=== PATIENT | female | born 1995 | race Caucasian/White ===

== ENCOUNTER 2021-08-31 19:38 | Emergency (ER) | payer OTHER, SELFPAY ==
--- NOTE | ~2021-08-31 | US_ITS ---
EXAMINATION: US OB <=14 wk fetus w TV DATE: 08/31/2021 23:07 INDICATION: Rule out ectopic . Heavy vaginal bleeding. TECHNIQUE: Real-time transabdominal and transvaginal obstetric ultrasound. FINDINGS: No prior studies for comparison. The uterus measures 8.7 x 4.9 x 6.8 cm. There are uterine fibroid measuring 3.1 cm. Endometrium measures 2 cm thickness. No intrauterine preg conrad is identified. Ovaries are within normal limits. No free fluid in the pelvis. IMPRESSION: 1. Thickened heterogeneous endometrium measuring 2 cm. No intrauterine identified. Clarita gomez diagnosis includes very early intrauterine , ectopic and failed . Re commend follow-up with serial quantitative beta-hCG levels and ultrasound as clinically indicated. Reviewed, dictated and finalized at location A.
[2021-08-31 19:56] VITALS: BP 141/84; PULSE 103; RESP 18; TEMP 36.9; O2SAT 99
[2021-08-31 20:34] LABS: Basophils Absolute Auto 0.1 K/mm3 (0.0-0.1); Basophils Percent Auto 0.8 % (0.2-1.2); Eosinophils Absolute Auto 0.1 K/mm3 (0-0.3); Eosinophils Percent Auto 1.6 % (0-4.4); Hematocrit 34.5 % (37.0-47.0); Hemoglobin 12.3 g/dL (12.0-15.0); Immature Granulocyte Absolute 0.05 K/mm3 (0.00-0.031); Immature Granulocyte Percent A 0.6 % (0-0.5); Lymphocytes Absolute Auto 1.81 K/mm3 (0.9-3.2); Lymphocytes Percent Auto 21.9 % (18.3-44.2); Mean Corpuscular HGB Conc 35.7 g/dl (32-36); Mean Corpuscular Hemoglobin 32.4 pg (26-34); Mean Corpuscular Volume 90.8 fl (80-100); Monocytes Absolute Auto 0.5 K/mm3 (0.1-0.6); Monocytes Percent Auto 5.7 % (2.6-8.5); Neutrophils Absolute Auto 5.8 K/mm3 (1.3-6.7); Neutrophils Percent Auto 69.4 % (45.5-73.1); Platelet Count Result 263 k/mm3 (150-375); Red Cell Distribution Width 12.7 % (11.5-14.5); White Blood Count 8.3 K/mm3 (4.5-10.0)
--- NOTE | 2021-08-31 22:26 | ED.GENADULT ---
HPI - General Adult General Chief complaint: Unspecified Stated complaint: Miscarriage Time Seen by Provider: 08/31/21 21:57 Source: patient and RN notes reviewed Mode of arrival: ambulatory Limitations: no limitations History of Present Illness HPI narrative: This is a 25 year old female approximately 6 weeks GA who presents for evaluation of vaginal bleeding. Patient states she was seen by her family practice doctor for vaginal bleeding. She reports she had an ultrasound showing 6 week IUP yesterday. She states she was sent to [facility] yesterday for rhogam injection but it was late so she left. She developed worsening vaginal bleeding last night, and reports soaking through 1 pad per hour. She reports she was passing large clots. She had abdominal cramping but that has resolved. She reports mild weakness. She reports she was told when she was younger she was O positive but with her first she was give RHOGAM for being O negative. Related Data Allergies Allergy/AdvReac Type Severity Reaction Status Date / Time No Known Allergies Allergy Verified 08/31/21 20:03 Review of Systems Review of Systems: All systems reviewed & are unremarkable except as noted in HPI and below PMFSH Past Medical History Medical History (Updated 09/01/21 @ 00:11 by Chandrika Block MD) Patient denies medical problems Surgical History Surgical History (Updated 08/31/21 @ 23:55 by Chandrika Block MD) No pertinent past surgical history Social History Social History (Updated 08/31/21 @ 23:56 by Chandrika Block MD) Smoking status: Never smoker Substance use: current Substance use type: amphetamines and IV drugs Exam Narrative: GENERAL: Well-appearing, well-nourished, and in no acute distress. HEAD: Normocephalic, atraumatic EYES: PERRLA and EOMI, conjunctiva clear without discharge THROAT:Mucous membranes moist, Oropharynx normal without erythema, exudate, peritonsillar swelling or fluctuance NECK: Supple, without lymphadenopathy or mass RESPIRATORY: No respiratory distress, Airway patent, Respirations non-labored, Clear to auscultation without rales, rhonchi or wheeze HEART: Regular rate and rhythm. No murmur heard. Normal peripheral pulses. ABDOMEN: Soft, nontender, nondistended, normal active bowel sounds. No masses. No rebound or guarding, No organomegaly. EXTREMITIES: No edema, normal strength with full range of motion. SKIN: Warm, dry, normal color without rash NEURO: Alert and oriented x3. CN 2-12 grossly intact. No focal deficits. PSYCH: Normal mood and affect. : Speculum Exam - Vagina: vaginal bleeding (minimal dark blood, no clots) Speculum Exam - Cervix: normal palpation and Cervical os closed Course Reevaluation(s) Reevaluation #1: US no longer shows IUP so she is having miscarriage. She was found to be O positive so no rhogam. She has minimal bleeding. Date: 08/31/21 Time: 23:56 Consultations Consultation #1: I Discussed case with Dr. Fuller about patient O positive with positive antibody anti- K. She agrees no Rhogam needed to be given at this time. Patient needs to have repeat HCG and follow up. Date: 09/01/21 Time: 00:08 Vital Signs Vital signs: Vital Signs Temperature 98.5 F 08/31/21 19:56 Pulse Rate 103 H 08/31/21 19:56 Respiratory Rate 18 08/31/21 19:56 Blood Pressure 141/84 H 08/31/21 19:56 Pulse Oximetry 99 08/31/21 19:56 Temperature 98.5 F 08/31/21 19:56 Pulse Rate 66 08/31/21 23:26 Respiratory Rate 18 08/31/21 23:26 Blood Pressure 135/79 08/31/21 23:26 Pulse Oximetry 100 08/31/21 23:26 Medical Decision Making Vital Signs Vital Signs: Vital Signs Temperature 98.5 F 08/31/21 19:56 Pulse Rate 103 H 08/31/21 19:56 Respiratory Rate 18 08/31/21 19:56 Blood Pressure 141/84 H 08/31/21 19:56 Pulse Oximetry 99 08/31/21 19:56 Temperature 98.5 F 08/31/21 19:56 Pulse Rate 66 08/31/21 23:26 Resp
[2021-08-31 23:26] VITALS: BP 135/79; PULSE 66; RESP 18; O2SAT 100
== END 2021-09-01 00:51 | disposition home or self-care (01) ==
PROVIDERS: Emergency Medicine; Emergency Provider General Practice; PCP Family Medicine
DX: O03.9 Complete or unspecified spontaneous abortion without complication (principal)
CPT/HCPCS: 36415; 76801; 76817; 84702; 85025; 85461; 86880; 86902; 99284

== ENCOUNTER 2022-02-03 11:10 | Emergency (ER) | payer OTHER, SELFPAY ==
[2022-02-03 11:33] VITALS: BP 133/91; PULSE 84; RESP 16; TEMP 36.3; O2SAT 99
--- NOTE | 2022-02-03 11:39 | ED.GENADULT ---
HPI - General Adult General Chief complaint: Dental/Oral Stated complaint: broken tooth with neck pain Source: patient Mode of arrival: ambulatory Limitations: no limitations History of Present Illness HPI narrative: this is a 26-year-old female who presents with some dental after she has dental caries and broken left lower molar a radiates into her neck with no fever chills no shortness of breath no nausea vomiting. Onset (ago): day(s) Location: mouth Radiation: neck Severity: moderate Severity scale (1-10): 6 Pain Consistency: constant Relieving factors: none Exacerbating factors: none Associated symptoms: denies other symptoms Related Data Home Medications Medication Instructions Recorded Confirmed Vitamin 1 tablet DAILY 02/03/22 02/03/22 Allergies Allergy/AdvReac Type Severity Reaction Status Date / Time No Known Allergies Allergy Verified 02/03/22 11:28 Review of Systems Review of Systems: All systems reviewed & are unremarkable except as noted in HPI and below PMFSH Past Medical History Medical History Patient denies medical problems Surgical History Surgical History No pertinent past surgical history Social History Social History Smoking status: Never smoker Substance use: current Substance use type: amphetamines and IV drugs Exam Const: General: no acute distress and alert Orientation/consciousness: patient oriented x3 HENMT: Head: normal to inspection Other: Patient has some dental caries and cracked left lower premolar surrounding gum inflammation and tenderness in the neck and radiating into her left ear. Eyes: Pupils: Equal, round and reactive pupils present Neck: Neck: normal visual inspection, no lymphadenopathy and no meningeal signs Chest: Chest palpation & inspection: normal inspection of the chest Resp: Effort & Inspection: normal respiratory effort Auscultation: clear to auscultation bilaterally Cardio: Rate: regular rate Rhythm: regular rhythm GI: GI Palp: Yes Soft to palpation Percussion: Yes normal to percussion : General: Yes no CVA tenderness Back/Spine/Pelvis: Back: no CVA tenderness Neuro: General: patient oriented x3 and moves all extremities Extrem: General: normal to inspection Course Course Emergency Course: Patient received IM Toradol, after reassessment of pain her pain level has improved. Critical Care Time Critical Care Time Critical Care Time: No Discharge Plan Discharge Clinical Impression: Toothache Fracture of tooth Qualifiers: Encounter type: initial encounter Fracture type: closed Qualified Code(s): S02.5XXA - Fracture of tooth (traumatic), initial encounter for closed fracture Patient Disposition: Home, Self-Care Condition: Stable Instructions: Antibiotic Form, Dental Abscess (ED), Acute Dental Trauma (ED), Toothache (ED) Additional Instructions: Take medicine as prescribed and establish care with a dentist as soon as possible for further evaluation and treatment. Prescriptions: New amoxicillin 500 mg capsule 500 mg PO TID Qty: 30 RF: 0 tramadol [Ultram] 50 mg tablet 50 mg PO Q6H PRN (Reason: pain) Qty: 20 RF: 0 No Action Vitamin 1 tablet DAILY RF: 0 Follow-up/Referrals: Jose Ying M.D. [Primary Care Provider] - Stand Alone Forms: Work/School Release IP Time of Disposition: 11:45
[2022-02-03] MEDS: KETOROLAC (*BKC) 60 MG/2 ML VIAL IM (11:58)
== END 2022-02-03 12:08 | disposition home or self-care (01) ==
PROVIDERS: Emergency Provider Emergency Medicine; PCP Family Medicine
DX: K08.89 Other specified disorders of teeth and supporting structures (principal); S02.5XXA Fracture of tooth (traumatic), initial encounter for closed fracture
CPT/HCPCS: 96372; 99283; J1885

== ENCOUNTER 2023-01-12 03:00 | Emergency (ER) | payer OTHER, SELFPAY ==
[2023-01-12 03:03] VITALS: BP 139/74; PULSE 98; RESP 14; TEMP 37.1; O2SAT 100
--- NOTE | 2023-01-12 03:09 | ED.GENADULT ---
HPI - General Adult General Chief complaint: Unspecified Stated complaint: Nausea/vomiting Source: patient Mode of arrival: ambulatory History of Present Illness HPI narrative: 27-year-old female with a history of polysubstance abuse, Rh negative presents to the ER with -- generalized body ache which started after she woke up from her sleep -- nausea multiple episodes of vomiting. She complains of generalized abdominal pain Onset (ago): hour(s) ( started 2 hours ago.) Severity: moderate Pain Consistency: constant Relieving factors: none Exacerbating factors: none Associated symptoms: nausea/vomiting Related Data Allergies Allergy/AdvReac Type Severity Reaction Status Date / Time No Known Allergies Allergy Verified 01/12/23 03:02 Review of Systems Review of Systems: All systems reviewed & are unremarkable except as noted in HPI and below Constitutional: Constitutional: Reports as per HPI and Reports body ache(s) Eyes: Eyes: Reports as per HPI and Reports no additional eye complaints ENT: Reports system reviewed and no additional complaints, except as documented and Reports as per HPI Cardiovascular: Cardiovascular: Reports as per HPI and Reports no additional cardiovascular complaints Respiratory: Respiratory: Reports as per HPI and Reports no additional respiratory complaints Gastrointestinal: Gastrointestinal: Reports as per HPI, Reports no additional gastrointestinal complaints, Reports abdominal pain, Reports nausea and Reports vomiting Genitourinary: Genitourinary: Reports no additional female genitourinary complaints and Reports as per HPI Musculoskeletal: Musculoskeletal: Reports no additional musculoskeletal complaints and Reports as per HPI Integumentary/Breasts: Skin/Breast: Reports system reviewed and no additional complaints, except as docu and Reports as per HPI Neurologic: Reports system reviewed and no additional complaints, except as documented and Reports as per HPI Psychiatric: Psychiatric: Reports no additional psychiatric complaints and Reports as per HPI Endocrine: Endocrine: Reports no additional endocrine complaints and Reports as per HPI Hematologic/Lymphatic: Hematologic/Lymphatic: Reports no additional hematologic/lymphatic complaints and Reports as per HPI Allergic/Immunologic: Allergic/Immunologic: Reports no additional allergic/immunologic complaints and Reports as per HPI PMFSH Past Medical History Medical History Patient denies medical problems Surgical History Surgical History No pertinent past surgical history Social History Social History Smoking status: Never smoker Substance use: current Substance use type: amphetamines and IV drugs Exam Const: General: cooperative and no acute distress Nutritional Appearance: average body habitus Orientation/consciousness: oriented to person, oriented to place and oriented to time Limitations: no limitations HENMT: Head: normal to inspection, normocephalic and atraumatic Ears: hearing grossly normal bilaterally Face/Nose/Sinus: Normal external nose present Face and sinus: normal facial exam Mouth: Yes Normal oral and palatal mucosa present Throat: posterior oropharynx normal Eyes: General: appearance normal, both eyes and all related structures Eyelids: eyelids normal Conjunctivae: conjunctivae normal Sclera: sclerae normal Pupils: Equal, round and reactive pupils present EOM: EOMs intact bilaterally Direct Ophthalmoscopy: normal light reflex Neck: Neck: normal visual inspection Chest: Chest palpation & inspection: normal inspection of the chest Resp: Effort & Inspection: normal respiratory effort Auscultation: clear to auscultation bilaterally Cardio: Palpation: normal PMI Rate: regular rate Rhythm: regular rhythm Heart sounds: S1 normal hea
[2023-01-12] MEDS: ONDANSETRON HCL ODT 4 MG TABLET PO ×2 (03:27→04:53)
[2023-01-12 03:53] LABS: Basophils Absolute Auto 0.02 K/mm3 (0.00-0.10); Basophils Percent Auto 0.3 % (0.0-1.0); Eosinophils Absolute Auto 0.05 K/mm3 (0.02-0.50); Eosinophils Percent Auto 0.7 % (1.0-6.0); Hematocrit 39.6 % (35.0-49.0); Hemoglobin 13.4 g/dL (12.0-15.0); Immature Granulocyte Absolute 0.02 K/mm3 (0.00-0.00); Immature Granulocyte Percent A 0.3 % (0.0-0.0); Lymphocytes Absolute Auto 0.32 K/mm3 (1.10-4.50); Lymphocytes Percent Auto 4.2 % (18.0-42.0); Mean Corpuscular HGB Conc 33.8 g/dL (32.0-36.0); Mean Corpuscular Hemoglobin 31.4 pg (27.0-31.0); Mean Corpuscular Volume 92.7 fL (78.0-102.0); Mean Platelet Volume 9.2 fl (9.2-11.8); Monocytes Absolute Auto 0.28 K/mm3 (0.10-0.90); Monocytes Percent Auto 3.7 % (2.0-11.0); Neutrophils Absolute Auto 6.8 K/mm3 (1.7-7.2); Neutrophils Percent Auto 90.8 % (50.0-70.0); Platelet Count Result 226 K/mm3 (150-420); Red Blood Count 4.27 M/mm3 (4.20-5.40); Red Cell Distribution Width 12.7 % (11.6-14.4); White Blood Count 7.5 K/mm3 (4.8-10.8)
[2023-01-12 03:56] LABS: Appearance Urine Clear (Clear); Bilirubin Urine Negative (Negative); Blood Urine Negative (Negative); Color Urine Yellow (Yellow); Glucose Urine UA Negative (Negative); Ketones Urine Trace (Negative); Leukocyte Esterase Ur Negative LEU/UL (Negative); Nitrate Urine Positive (Negative); Protein Urine Negative (Negative); Specific Grav Ur >= 1.030 (1.010-1.020); pH Urine 5.5 (5.0-8.0)
[2023-01-12 04:01] LABS: Add Urine Microscopic? YES; RBC Urine 0-2 /hpf (0-2); Squamous Epithelial Cell Urine Moderate /hpf (Few); WBC Urine 0-3 /hpf (0-3)
[2023-01-12 04:02] LABS: Bacteria Urine 1+ /hpf; Mucus Urine Moderate /lpf; Pregnancy On Board Control Positive; Urine Pregnancy Test Negative
[2023-01-12 04:06] LABS: INR 1.1; Prothrombin Time 11.5 Seconds (9.50-12.10)
[2023-01-12 04:09] LABS: Alanine Aminotransferase 12 U/L (14-59); Albumin Level 3.7 g/dL (3.4-5.0); Alkaline Phosphatase 75 U/L (46-116); Anion Gap 11 mmol/L (8-16); Aspartate Amino Transferase 17 U/L (15-37); Bilirubin,Total 0.6 mg/dL (0.00-1.00); Blood Urea Nitrogen 19 mg/dL (7-18); Carbon Dioxide 23 mmol/L (21-32); Chloride 104 mmol/L (98-108); Estimated CRCL calculation 77 ml/min; Estimated Glomerular Filt Rate > 60; Glucose 120 mg/dL (70-99); Lipase 29 U/L (16-77); Osmolality Calculated 289 mOsm/kg (285-295); Potassium 3.8 mmol/L (3.5-5.1); Sodium 138 mmol/L (136-145); Total Protein 7.7 g/dL (6.4-8.2)
[2023-01-12 04:14] LABS: Lactic Acid Reflex 1.2 mmol/L (0.4-2.0)
[2023-01-12 04:16] LABS: Calcium 8.9 mg/dL (8.5-10.1)
[2023-01-12 04:29] LABS: Influenza A QL RT-PCR Negative (Negative); Influenza B QL RT-PCR Negative (Negative); SARS-CoV-2 RNA PCR Negative (Negative)
[2023-01-12 04:42] LABS: RSV RNA, RT-PCR Negative (Negative)
--- NOTE | 2023-01-12 04:53 | ED.GENADULT ---
HPI - General Adult General Chief complaint: Unspecified Stated complaint: Nausea/vomiting Source: patient Mode of arrival: ambulatory History of Present Illness Relieving factors: none Exacerbating factors: none Associated symptoms: nausea/vomiting Related Data Allergies Allergy/AdvReac Type Severity Reaction Status Date / Time No Known Allergies Allergy Verified 01/12/23 03:02 [facility] Past Medical History Medical History Patient denies medical problems Surgical History Surgical History No pertinent past surgical history Social History Social History Smoking status: Never smoker Substance use: current Substance use type: amphetamines and IV drugs Course Vital Signs Vital signs: Vital Signs Temperature 37.1 C 01/12/23 03:03 Pulse Rate 98 01/12/23 03:03 Respiratory Rate 14 01/12/23 03:03 Blood Pressure 139/74 01/12/23 03:03 Pulse Oximetry 100 01/12/23 03:03 Temperature 37.1 C 01/12/23 03:03 Pulse Rate 98 01/12/23 03:03 Respiratory Rate 14 01/12/23 03:03 Blood Pressure 139/74 01/12/23 03:03 Pulse Oximetry 100 01/12/23 03:03 Medical Decision Making Vital Signs Vital Signs: Vital Signs Temperature 37.1 C 01/12/23 03:03 Pulse Rate 98 01/12/23 03:03 Respiratory Rate 14 01/12/23 03:03 Blood Pressure 139/74 01/12/23 03:03 Pulse Oximetry 100 01/12/23 03:03 Temperature 37.1 C 01/12/23 03:03 Pulse Rate 98 01/12/23 03:03 Respiratory Rate 14 01/12/23 03:03 Blood Pressure 139/74 01/12/23 03:03 Pulse Oximetry 100 01/12/23 03:03 Lab Data 01/12/23 03:50 01/12/23 03:50 Labs: Lab Results 01/12/23 01/12/23 01/12/23 Range/Units 03:50 03:50 03:50 WBC 7.5 (4.8-10.8) K/mm3 RBC 4.27 (4.20-5.40) M/mm3 Hgb 13.4 (12.0-15.0) g/dL Hct 39.6 (35.0-49.0) % MCV 92.7 (78.0-102.0) fL MCH 31.4 H (27.0-31.0) pg MCHC 33.8 (32.0-36.0) g/dL RDW 12.7 (11.6-14.4) % Plt Count 226 (150-420) K/mm3 MPV 9.2 (9.2-11.8) fl Immature Gran % (Auto) 0.3 H (0.0-0.0) % Neut % (Auto) 90.8 H (50.0-70.0) % Lymph % (Auto) 4.2 L (18.0-42.0) % [place] % (Auto) 3.7 (2.0-11.0) % Eos % (Auto) 0.7 L (1.0-6.0) % Baso % (Auto) 0.3 (0.0-1.0) % Lymph # (Auto) 0.32 L (1.10-4.50) K/mm3 [place] # (Auto) 0.28 (0.10-0.90) K/mm3 Eos # (Auto) 0.05 (0.02-0.50) K/mm3 Baso # (Auto) 0.02 (0.00-0.10) K/mm3 Abs Immat Gran (auto) 0.02 H (0.00-0.00) K/mm3 Absolute Neuts (auto) 6.8 (1.7-7.2) K/mm3 Absolute Nucleated RBC 0.00 (0.00-0.00) K/mm3 Nucleated RBC % 0.0 (0-0.0) % PT (9.50-12.10) Seconds INR Sodium (136-145) mmol/L Potassium (3.5-5.1) mmol/L Chloride (98-108) mmol/L Carbon Dioxide (21-32) mmol/L Anion Gap (8-16) mmol/L BUN (7-18) mg/dL Creatinine (0.55-1.02) mg/dL Estim Creat Clear Calc ml/min Estimated GFR (59 - ) Glucose (70-99) mg/dL Calculated Osmolality (285-295) mOsm/kg Lactic Acid (0.4-2.0) mmol/L Calcium (8.5-10.1) mg/dL Total Bilirubin (0.00-1.00) mg/dL AST (15-37) U/L ALT (14-59) U/L Alkaline Phosphatase (46-116) U/L Total Protein (6.4-8.2) g/dL Albumin (3.4-5.0) g/dL Lipase (16-77) U/L Urine Color Yellow (Yellow) Urine Appearance Clear (Clear) Urine pH 5.5 (5.0-8.0) Ur Specific [place] >= 1.030 H (1.010-1.020) Urine Protein Negative (Negative) Urine Glucose (UA) Negative (Negative) Urine Ketones Trace H (Negative) Ur Blood (Man) Negative (Negative) Urine Nitrate Positive H (Negative) Urine Bilirubin Negative (Negative) Urine Urobilinogen 1.0 (0.2-1.0) mg/dL Leukocyte Esterase Rfl N
[2023-01-12 04:56] VITALS: BP 113/71; PULSE 95; RESP 14; TEMP 36.6; O2SAT 100
--- NOTE | 2023-01-14 14:09 | PC.NURSE ---
attempted to call pt to infomr of positive urine culture and need to start abx. phone message states the pt is unavailable at this time.
--- NOTE | 2023-01-14 17:25 | PC.NURSE ---
2nd attempt to call pt to inform of positive urine culture and need to start abx. phone message states the pt is unavailable at this time.
--- NOTE | 2023-01-14 17:30 | PC.NURSE ---
contact attempt with pt's emergency contact - Johnnie- unsuccessful. voice message left on machine to return call to this hand sign writer.
--- NOTE | 2023-01-14 18:43 | PC.NURSE ---
attempted to call pt, phone states pt is unavailable at this time. pt's emergency contact, Johnnie, called, his phone states he is also unavailable.
--- NOTE | 2023-01-15 12:04 | PC.NURSE ---
attempted to contact pt via phone to discuss urine culture report and need for abx. phone message states pt is not taking calls at this time. called pt emergency contact - feliberto - as listed on her chart. feliberto contacted and instructed to have juventino call this er for treatment zeynep
--- NOTE | 2023-01-15 13:36 | PC.NURSE ---
pt returned call. informed of urinary infection and need for abx. pt requested medication be called in to [facility] in [place]. Augmentin 875/125mg p.o. q12 hours for 7 days called in to [facility] in [place]. pt instructed to f/u with pmd for further treatment.
== END 2023-01-12 05:01 | disposition home or self-care (01) ==
PROVIDERS: Emergency Provider Internal Medicine Critical Care Medicine
DX: K29.70 Gastritis, unspecified, without bleeding (principal); R52 Pain, unspecified; Z20.822 Contact with and (suspected) exposure to COVID-19
CPT/HCPCS: 36415; 80053; 81001; 81025; 83605; 83690; 85025; 85610; 87077; 87086; 87088; 87186; 87637; 99283; A9270

== ENCOUNTER 2024-05-20 15:22 | Inpatient (IN) | payer OTHER, SELFPAY ==
--- NOTE | ~2024-05-20 | US_ITS ---
RIGHT UPPER EXTREMITY VENOUS ULTRASOUND Ordering provider: Khushbu Jimenez PA-C History: . right forearm swelling . Comparison: None. FINDINGS: --JUGULAR: Patent and free of thrombus. Normal compressibility, phasic flow and augmentation. --SUBCLAVIAN: Patent and free of thrombus. Normal compressibility, phasic flow and augmentation. --AXILLARY: Patent and free of thrombus. Normal compressibility, phasic flow and augmentation. --BRACHIAL: Patent and free of thrombus. Normal compressibility, phasic flow and augmentation. --CEPHALIC: Patent and free of thrombus. Normal compressibility, phasic flow and augmentation. --BASILIC: Patent and free of thrombus. Normal compressibility, phasic flow and augmentation. --RADIAL: Patent and free of thrombus. Normal compressibility, phasic flow and augmentation. --ULNAR: Patent and free of thrombus. Normal compressibility, phasic flow and augmentation. IMPRESSION: Negative right upper extremity venous US. No deep vein thrombosis. Reviewed, dictated and finalized at location A.
--- NOTE | ~2024-05-20 | CT_ITS ---
EXAMINATION: CTA chest PE abdomen pel DATE: 05/20/2024 19:36 INDICATION: L chest/abd pain, pleuritic pain, fevers, N/V TECHNIQUE: Computed tomography angiography (CTA) of the chest was performed with 100 mL Omnipaque-350 intravenous contrast timed to evaluate the pulmonary arteries, followed by portal venous phase imagi ng of the abdomen and pelvis. Coronal maximum intensity projection 3D-reconstructions were created by the technologist. The dose-length product (DLP) was 583.33 mGy-cm. Automated exposure control and it erative reconstruction technique were employed. COMPARISON: None. FINDINGS: CHEST: Lung parenchyma and airways: Scattered centrilobular nodular and tree-in-bud opacities, most notable in the right lung. Calcified right lower lobe granuloma. Dependent atelectasis. Pleura: Unremarkable. Thoracic inlet, axillae and chest wall: No thyroid or soft tissue mass. Thoracic aorta: No significant dilation. No dissection. Mediastinum: Normal. Heart and pericardium: Normal. Coronary artery calcifications: Absent. Thoracic bones: No acute osseous finding. Pulmonary arteries: Study quality: Adequate. No pulmonary emboli detected. ABDOMEN/PELVIS: Liver: Enlarged. Biliary/Gallbladder: Partially contracted gallbladder with pericholecystic fluid. No bile duct dilati on. Pancreas: No mass or duct dilation. Spleen: Normal. Adrenals:No mass. Kidneys: Patchy left renal parenchymal enhancement without focal fluid collection. Mild bilateral ure terectasis and urothelial enhancement. GI tract: No small or large bowel dilation. Normal appendix. Diverticulosis without diverticulitis. Mesentery/Peritoneum: No ascites, mass, or free air. Retroperitoneum: No mass. Pelvis: Fibroid uterus. Normal ovaries. Mild urinary bladder wall thickening and stranding. Soft Tissues: Soft tissues and body wall unremarkable. Abdominopelvic bones: No acute osseous finding. IMPRESSION: No CT evidence of acute pulmonary embolus. Pulmonary opacities may reflect hypersensitivity pneumonitis, respiratory bronchiolitis, or infectiou s airways disease. Hepatomegaly. Pericholecystic fluid, a nonspecific finding. Correlate with biliary labs. Left pyelonephritis, likely secondary to ascending infection from cystitis. Reviewed, dictated and finalized at location K. IMPRESSION: No CT evidence of acute pulmonary embolus. Pulmonary opacities may reflect hypersensitivity pneumonitis, respiratory bronc hiolitis, or infectious airways disease. Hepatomegaly. Pericholecystic fluid, a nonspecific finding. Correlate with biliary labs. Left pyelonephritis, likely secondary to ascending infection from cystitis.
[2024-05-20 15:45] VITALS: BP 126/82; PULSE 110; RESP 20; TEMP 38.1; O2SAT 100
--- NOTE | 2024-05-20 15:48 | ED_ITS ---
HPI - Fever General Chief Complaint: Fever <Davida Nunez PA-C - Last Filed: 05/21/24 10:05> Stated Complaint: fever x 5 days, peeing dark blood, abd bloating <Davida Nunez PA-C - Last Filed: 05/21/24 10:05> Time Seen by Provider: 05/20/24 15:48 <FLACA Gonzalez Last Filed: 05/21/24 10:05> Focused HPI: This is a 28 year old female that presents to the ER for fevers. Ongoing over the last 5 days. Reports left flank pain and hematuria. Reports dizziness. She was seen at another ER and given a dose of antibiotics IV. Was discharged with oral antibiotics, but has not picked them up. Her PCP told her she needs to be admitted for IV antibiotics. GENERAL: Well-appearing, well-nourished, and in no acute distress. HEAD: Normocephalic, atraumatic. CHEST: Clear to auscultation. ?No respiratory distress. HEART: Regular rate and rhythm.? NEURO: ?Alert and oriented x3. Patient screened in triage and initial orders placed.? ?Additional care and disposition to be based upon?diagnostic testing and treatment. 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 Patient reports she has been ill for the last 5 days with fevers, Tmax 104F, left-sided abdominal pain, abdominal bloating, nausea, vomiting, dark urine. She has been taking ibuprofen and Tylenol for her fevers, but states she has had a hard time controlling them. Reports abd pain is worse with deep inspiration. She also reports body aches, chills, headache, cough. She was seen at an outside ED yesterday, diagnosed with a urinary tract infection, received IV fluids and IV antibiotics, but was not discharged on antibiotics. Was notified by her primary care doctor to return to the ED today as symptoms have continued. Patient last took ibuprofen around 2:00 p.m.. Temperature upon arrival 100.6? F. Denies dysuria, diarrhea, constipation, last bowel movement 2 days ago. <Almita Hammonds PA-C - Last Filed: 05/20/24 21:07> Related Data Home Medications: Home Medications Medication Instructions Recorded Confirmed No Home Medications 05/20/24 05/20/24 <Davida Nunez PA-C - Last Filed: 05/21/24 10:05> Allergies/Adverse Reactions: Allergies Allergy/AdvReac Type Severity Reaction Status Date / Time No Known Allergies Allergy Verified 05/20/24 15:52 <Davida Nunez PA-C - Last Filed: 05/21/24 10:05> Review of Systems Review of Systems: CONSTITUTIONAL: See HPI. GASTROINTESTINAL: See HPI. GENITOURINARY: See HPI. MUSCULOSKELETAL: Reports myalgia. NEUROLOGIC: see HPI. <Almita Hammonds PA-C - Last Filed: 05/20/24 21:07> All systems reviewed & are unremarkable except as noted in HPI and below <Almita Hammonds PA-C - Last Filed: 05/20/24 21:07> PMFSH Past Medical History Medical History: Medical History Patient denies medical problems <Davida Nunez PA-C - Last Filed: 05/21/24 10:05> Surgical History Surgical History: Surgical History No pertinent past surgical history <Davida Nunez PA-C - Last Filed: 05/21/24 10:05> Social History Social History: Social History Smoking status: Never smoker Second hand tobacco smoke exposure: Yes Substance use: never Substance use type: does not use Do You Feel Safe in your Home?: Yes Lack of Transportation: YES Lack of Food: Sometimes True Current Housing: I Have Housing Concerned About Future Housing: No Difficulty Paying Gas/Electric Bills: No Difficulty Paying for Meds: No Currently Unemployed: No Education: High School Diploma/GED Difficulty w/ Childcare or Family Care: No Spiritual care concerns: Yes (Believe in God) <Davida Nunez PA-C - Last Filed: 05/21/24 10:05> Exam Narrative: GENERAL: Mildly ill appearing, well-nourished, non-toxic, in no acute distress. HEAD: Normocephalic, atraumatic. RESPIRATORY: Airway patent, respirations nonlabored. Clear to auscultation bilaterally, no rales, rhonchi, wheezing. No significant focal lung sounds. CARDIOVASCULAR: Tachycardic with regular rhythm. No appreciable murmur. ABDOMINAL: TTP in left mid and upper abdomen, abdomen is mildly distended, but still soft. Normoactive BS. MUSCULOSKELETAL: Moves all extremities. No gross deformities. Mild swelling and fullness noted of paz hands. SKIN: Warm, dry, normal color. NEURO: A&O X3. Speech clear. Cranial nerves II-XII grossly intact. Steady gait. No ataxic movements. PSYCHIATRIC: Appropriate mood and affect. Normal interaction. <Almita Hammonds PA-C - Last Filed: 05/20/24 21:07> Course SALES [employer]HOUSE [employer]IVER/PA Physician Supervision This visit was performed by both a physician and an APC. I performed all aspects of the MDM as documented. <Shweta Llamas MD - Last Filed: 05/20/24 21:35> Vital Signs Vital signs: Vital Signs Temperature 100.6 F H 05/20/24 15:45 Pulse Rate 110 H 05/20/24 15:45 Respiratory Rate 05/20/24 15:45 Blood Pressure 126/82 05/20/24 15:45 Pulse Oximetry 100 05/20/24 15:45 Oxygen Delivery Room Air 05/20/24 15:45 Temperature 100.5 F H 05/21/24 03:38 Pulse Rate 114 H 05/21/24 04:00 Respiratory Rate 05/21/24 03:38 Blood Pressure 143/91 H 05/21/24 03:38 Pulse Oximetry 98 05/21/24 03:38 Oxygen Delivery Room Air 05/20/24 15:45 <Davida Nunez PA-C - Last Filed: 05/21/24 10:05> Vital Signs Temperature 100.6 F H 05/20/24 15:45 Pulse Rate 110 H 05/20/24 15:45 Respiratory Rate 20 05/20/24 15:45 Blood Pressure 126/82 05/20/24 15:45 Pulse Oximetry 100 05/20/24 15:45 Oxygen Delivery Room Air 05/20/24 15:45 Temperature 100.5 F H 05/21/24 03:38 Pulse Rate 114 H 05/21/24 04:00 Respiratory Rate 20 05/21/24 03:38 Blood Pressure 143/91 H 05/21/24 03:38 Pulse Oximetry 98 05/21/24 03:38 Oxygen Delivery Room Air 05/20/24 15:45 <Almita Hammonds PA-C - Last Filed: 05/20/24 21:07> Vital Signs Temperature 100.6 F H 05/20/24 15:45 Pulse Rate 110 H 05/20/24 15:45 Respiratory Rate 20 05/20/24 15:45 Blood Pressure 126/82 05/20/24 15:45 Pulse Oximetry 100 05/20/24 15:45 Oxygen Delivery Room Air 05/20/24 15:45 Temperature 100.5 F H 05/21/24 03:38 Pulse Rate 114 H 05/21/24 04:00 Respiratory Rate 05/21/24 03:38 Blood Pressure 143/91 H 05/21/24 03:38 Pulse Oximetry 98 05/21/24 03:38 Oxygen Delivery Room Air 05/20/24 15:45 <Shweta Llamas MD - Last Filed: 05/20/24 21:35> MDM - Fever MDM Narrative Medical decision making narrative: Patient presented to ED with 5 day history of fevers, abdominal pain, urinary complaints, nausea, vomiting. Patient tachycardic and febrile upon arrival. Fluids and Tylenol initiated. Cbc without leukocytosis. White blood cell count of 8.2. Minimal anemia at 11.2. No recent records to compare to. CMP unremarkable, stable electrolytes/kidney function. Viral swabs are negative. Urine does appear consistent with infection, 3+ leuk esterase, 21-50 white blood cells. Sent for culture. Lactic acid WNL at 1.0. Blood cultures were obtained. Patient did report pleuritic nature of left upper abdominal pain/back pain. D-dimer was obtained and elevated. CTA of chest with abdomen pelvis was obtained and showing left-sided pyelonephritis, no PE, nonspecific pulmonary opacities. Pyelonephritis does fit with clinical picture. Patient conner s report several week hx of cough. She has hx of IVDA, but reports she has been clean for 4 years. No evidence of septic emboli at this time. Discussed lab and imaging findings with patient. She was given 2 L of fluid in the ED, Tylenol, Rocephin. Vital signs have stabilized mostly, still borderline tachycardic at times. She is meeting sepsis criteria at this time based on pyelo/initial vital signs. Will admit for further evaluation, continued IV abx. Discussed case with Dr. Diego, accepted patient for admission, inpatient status, recommended to start/continue Meropenem. Patient in agreement with plan and need for admission. <Almita Hammonds PA-C - Last Filed: 05/20/24 21:07> Medical Records Attestation: I reviewed the patient's medical records. <Almita Hammonds PA-C - Last Filed: 05/20/24 21:07> Lab Data Attestation: I reviewed the patient's lab results. <Almita Hammonds PA-C - Last Filed: 05/20/24 21:07> Result diagrams: 05/20/24 17:39 05/20/24 17:39 <Davida Nunez PA-C - Last Filed: 05/21/24 10:05> Labs: Lab Results 05/20/24 05/20/24 05/20/24 Range/Units 16:36 17:39 18:04 WBC 8.2 (4.5-10.0) K/mm3 RBC 3.24 L (4.2-5.4) M/mm3 Hgb 11.2 L (12.0-15.0) g/dL Hct 31.9 L (37.0-47.0) % MCV 98.5 (80-100) fl MCH 34.6 H (26-34) pg MCHC 35.1 (32-36) g/dl RDW 13.2 (11.5-14.5) % Plt Count 149 L (150-375) k/mm3 MPV 9.2 (7.4-10.4) fl Immature Gran % (Auto) 0.4 (0-0.5) % Neut % (Auto) 79.9 H (45.5-73.1) % Lymph % (Auto) 6.6 L (18.3-44.2) % [place] % (Auto) 12.8 H (2.6-8.5) % Eos % (Auto) 0.1 (0-4.4) % Baso % (Auto) 0.2 (0.2-1.2) % Lymph # (Auto) 0.54 L (0.9-3.2) K/mm3 [place] # (Auto) 1.0 H (0.1-0.6) K/mm3 Eos # (Auto) 0.0 (0-0.3) K/mm3 Baso # (Auto) 0.0 (0.0-0.1) K/mm3 Abs Immat Gran (auto) 0.03 (0.00-0.031) K/mm3 Absolute Neuts (auto) 6.5 (1.3-6.7) K/mm3 Absolute Nucleated RBC 0.000 (0.0-0.012) K/mm3 Nucleated RBC % 0.0 (0.0-0.2) % PT 15.7 H (11.1-14.7) Seconds INR 1.2 APTT 47.8 H (22.3-36.8) Seconds D-Dimer 1.84 H (<0.48) ug/mL Sodium 131 L (137-145) mmol/L Potassium 3.9 (3.4-5.0) mmol/L Chloride 99 (98-107) mmol/L Carbon Dioxide 23 (22-30) mmol/L Anion Gap 9 (4-12) mmol/L BUN 6 L (7-17) mg/dL Creatinine 0.80 (0.7-1.0) mg/dL Estim Creat Clear Calc 70 ml/min Estimated GFR > 60 (59 - ) Glucose 102 (65-110) mg/dL Lactic Acid 1.0 (0.7-2.0) mmol/L Calcium 8.8 (8.4-10.2) mg/dL Total Bilirubin 0.7 (0.2-1.3) mg/dL AST 36 (14-36) U/L ALT 24 (6-35) U/L Alkaline Phosphatase 171 H (38-126) U/L C-Reactive Protein 20.5 H (<1.0) mg/dL Total Protein 7.0 (6.3-8.2) g/dL Albumin 3.5 (3.5-5.1) g/dL Lipase 33 (23-300) U/L Urine Color Yellow (Yellow) Urine Appearance Cloudy H (Clear) Urine pH 8.0 (5.0-9.0) Ur Specific [place] 1.008 (1.001-1.035) Urine Protein Trace (Negative) mg/dL Urine Glucose (UA) Negative (Negative) mg/dL Urine Ketones Negative (Negative) mg/dL Ur Blood (Man) 1+ H (Negative) Urine Nitrate Negative (Negative) Urine Bilirubin Negative (Negative) Urine Urobilinogen 1.0 (<2.0) mg/dL Leukocyte Esterase Rfl 3+ H (Negative) MOR/UL Urine RBC 0-2 (0-2) /hpf Urine WBC 21-50 H (0-3) /hpf Ur Squamous Epith Cells Few (Few) /hpf Urine Bacteria Rare /hpf Urine Casts 0-2 Urine Opiates Screen Negative (Negative) Urine Methadone Screen Negative (Negative) Ur Barbiturates Screen Negative (Negative) Ur Phencyclidine Scrn Negative (Negative) Ur Amphetamine Screen Negative (Negative) U Benzodiazepines Scrn Negative (Negative) Urine Cocaine Screen Negative (Negative) U Cannabinoids Screen Negative (Negative) Influenza A (RT-PCR) Negative (Negative) Influenza B (RT-PCR) Negative (Negative) RSV (RT-PCR) Negative (Negative) SARS-CoV-2 RNA (RT-PCR) Negative (Negative) <Davida Nunez PA-C - Last Filed: 05/21/24 10:05> Lab Results 05/20/24 05/20/24 05/20/24 Range/Units 16:36 17:39 18:04 WBC 8.2 (4.5-10.0) K/mm3 RBC 3.24 L (4.2-5.4) M/mm3 Hgb 11.2 L (12.0-15.0) g/dL Hct 31.9 L (37.0-47.0) % MCV 98.5 (80-100) fl MCH 34.6 H (26-34) pg MCHC 35.1 (32-36) g/dl RDW 13.2 (11.5-14.5) % Plt Count 149 L (150-375) k/mm3 MPV 9.2 (7.4-10.4) fl Immature Gran % (Auto) 0.4 (0-0.5) % Neut % (Auto) 79.9 H (45.5-73.1) % Lymph % (Auto) 6.6 L (18.3-44.2) % [place] % (Auto) 12.8 H (2.6-8.5) % Eos % (Auto) 0.1 (0-4.4) % Baso % (Auto) 0.2 (0.2-1.2) % Lymph # (Auto) 0.54 L (0.9-3.2) K/mm3 [place] # (Auto) 1.0 H (0.1-0.6) K/mm3 Eos # (Auto) 0.0 (0-0.3) K/mm3 Baso # (Auto) 0.0 (0.0-0.1) K/mm3 Abs Immat Gran (auto) 0.03 (0.00-0.031) K/mm3 Absolute Neuts (auto) 6.5 (1.3-6.7) K/mm3 Absolute Nucleated RBC 0.000 (0.0-0.012) K/mm3 Nucleated RBC % 0.0 (0.0-0.2) % PT 15.7 H (11.1-14.7) Seconds INR 1.2 APTT 47.8 H (22.3-36.8) Seconds D-Dimer 1.84 H (<0.48) ug/mL Sodium 131 L (137-145) mmol/L Potassium 3.9 (3.4-5.0) mmol/L Chloride 99 (98-107) mmol/L Carbon Dioxide 23 (22-30) mmol/L Anion Gap 9 (4-12) mmol/L BUN 6 L (7-17) mg/dL Creatinine 0.80 (0.7-1.0) mg/dL Estim Creat Clear Calc 70 ml/min Estimated GFR > 60 (59 - ) Glucose 102 (65-110) mg/dL Lactic Acid 1.0 (0.7-2.0) mmol/L Calcium 8.8 (8.4-10.2) mg/dL Total Bilirubin 0.7 (0.2-1.3) mg/dL AST 36 (14-36) U/L ALT 24 (6-35) U/L Alkaline Phosphatase 171 H (38-126) U/L C-Reactive Protein 20.5 H (<1.0) mg/dL Total Protein 7.0 (6.3-8.2) g/dL Albumin 3.5 (3.5-5.1) g/dL Lipase 33 (23-300) U/L Urine Color Yellow (Yellow) Urine Appearance Cloudy H (Clear) Urine pH 8.0 (5.0-9.0) Ur Specific [place] 1.008 (1.001-1.035) Urine Protein Trace (Negative) mg/dL Urine Glucose (UA) Negative (Negative) mg/dL Urine Ketones Negative (Negative) mg/dL Ur Blood (Man) 1+ H (Negative) Urine Nitrate Negative (Negative) Urine Bilirubin Negative (Negative) Urine Urobilinogen 1.0 (<2.0) mg/dL Leukocyte Esterase Rfl 3+ H (Negative) MOR/UL Urine RBC 0-2 (0-2) /hpf Urine WBC 21-50 H (0-3) /hpf Ur Squamous Epith Cells Few (Few) /hpf Urine Bacteria Rare /hpf Urine Casts 0-2 Urine Opiates Screen Negative (Negative) Urine Methadone Screen Negative (Negative) Ur Barbiturates Screen Negative (Negative) Ur Phencyclidine Scrn Negative (Negative) Ur Amphetamine Screen Negative (Negative) U Benzodiazepines Scrn Negative (Negative) Urine Cocaine Screen Negative (Negative) U Cannabinoids Screen Negative (Negative) Influenza A (RT-PCR) Negative (Negative) Influenza B (RT-PCR) Negative (Negative) RSV (RT-PCR) Negative (Negative) SARS-CoV-2 RNA (RT-PCR) Negative (Negative) <Almita Hammonds PA-C - Last Filed: 07/15/24 21:07> Lab Results 05/20/24 05/20/24 05/20/24 Range/Units 16:36 17:39 18:04 WBC 8.2 (4.5-10.0) K/mm3 RBC 3.24 L (4.2-5.4) M/mm3 Hgb 11.2 L (12.0-15.0) g/dL Hct 31.9 L (37.0-47.0) % MCV 98.5 (80-100) fl MCH 34.6 H (26-34) pg MCHC 35.1 (32-36) g/dl RDW 13.2 (11.5-14.5) % Plt Count 149 L (150-375) k/mm3 MPV 9.2 (7.4-10.4) fl Immature Gran % (Auto) 0.4 (0-0.5) % Neut % (Auto) 79.9 H (45.5-73.1) % Lymph % (Auto) 6.6 L (18.3-44.2) % [place] % (Auto) 12.8 H (2.6-8.5) % Eos % (Auto) 0.1 (0-4.4) % Baso % (Auto) 0.2 (0.2-1.2) % Lymph # (Auto) 0.54 L (0.9-3.2) K/mm3 [place] # (Auto) 1.0 H (0.1-0.6) K/mm3 Eos # (Auto) 0.0 (0-0.3) K/mm3 Baso # (Auto) 0.0 (0.0-0.1) K/mm3 Abs Immat Gran (auto) 0.03 (0.00-0.031) K/mm3 Absolute Neuts (auto) 6.5 (1.3-6.7) K/mm3 Absolute Nucleated RBC 0.000 (0.0-0.012) K/mm3 Nucleated RBC % 0.0 (0.0-0.2) % PT 15.7 H (11.1-14.7) Seconds INR 1.2 APTT 47.8 H (22.3-36.8) Seconds D-Dimer 1.84 H (<0.48) ug/mL Sodium 131 L (137-145) mmol/L Potassium 3.9 (3.4-5.0) mmol/L Chloride 99 (98-107) mmol/L Carbon Dioxide 23 (22-30) mmol/L Anion Gap 9 (4-12) mmol/L BUN 6 L (7-17) mg/dL Creatinine 0.80 (0.7-1.0) mg/dL Estim Creat Clear Calc 70 ml/min Estimated GFR > 60 (59 - ) Glucose 102 (65-110) mg/dL Lactic Acid 1.0 (0.7-2.0) mmol/L Calcium 8.8 (8.4-10.2) mg/dL Total Bilirubin 0.7 (0.2-1.3) mg/dL AST 36 (14-36) U/L ALT 24 (6-35) U/L Alkaline Phosphatase 171 H (38-126) U/L C-Reactive Protein 20.5 H (<1.0) mg/dL Total Protein 7.0 (6.3-8.2) g/dL Albumin 3.5 (3.5-5.1) g/dL Lipase 33 (23-300) U/L Urine Color Yellow (Yellow) Urine Appearance Cloudy H (Clear) Urine pH 8.0 (5.0-9.0) Ur Specific [place] 1.008 (1.001-1.035) Urine Protein Trace (Negative) mg/dL Urine Glucose (UA) Negative (Negative) mg/dL Urine Ketones Negative (Negative) mg/dL Ur Blood (Man) 1+ H (Negative) Urine Nitrate Negative (Negative) Urine Bilirubin Negative (Negative) Urine Urobilinogen 1.0 (<2.0) mg/dL Leukocyte Esterase Rfl 3+ H (Negative) MOR/UL Urine RBC 0-2 (0-2) /hpf Urine WBC 21-50 H (0-3) /hpf Ur Squamous Epith Cells Few (Few) /hpf Urine Bacteria Rare /hpf Urine Casts 0-2 Urine Opiates Screen Negative (Negative) Urine Methadone Screen Negative (Negative) Ur Barbiturates Screen Negative (Negative) Ur Phencyclidine Scrn Negative (Negative) Ur Amphetamine Screen Negative (Negative) U Benzodiazepines Scrn Negative (Negative) Urine Cocaine Screen Negative (Negative) U Cannabinoids Screen Negative (Negative) Influenza A (RT-PCR) Negative (Negative) Influenza B (RT-PCR) Negative (Negative) RSV (RT-PCR) Negative (Negative) SARS-CoV-2 RNA (RT-PCR) Negative (Negative) <Shweta Llamas MD - Last Filed: 05/20/24 21:35> Imaging Data Attestation: I personally reviewed and interpreted this imaging study as follows: <Almita Hammonds PA-C - Last Filed: 05/20/24 21:07> Radiologist's impression: ITS Impressions Chest/Abdomen/Pelvis CTA 05/20/24 19:39 IMPRESSION: No CT evidence of acute pulmonary embolus. Pulmonary opacities may reflect hypersensitivity pneumonitis, respiratory bronchiolitis, or infectious airways disease. Hepatomegaly. Pericholecystic fluid, a nonspecific finding. Correlate with biliary labs. Left pyelonephritis, likely secondary to ascending infection from cystitis. <Almita Hammonds PA-C - Last Filed: 05/20/24 21:07> ECG Data EKG #1: Attestation: I personally reviewed and interpreted this ECG as follows: <Almita Hammonds PA-C - Last Filed: 05/20/24 21:07> ECG completion date: 05/20/24 <Almita Hammonds PA-C - Last Filed: 05/20/24 21:07> ECG completion time: 16:14 <Almita Hammonds PA-C - Last Filed: 05/20/24 21:07> EKG Interpretation: tachycardia (102), sinus rhythm, non-specific ST changes and other (baseline artifact) <Almita Hammonds PA-C - Last Filed: 05/20/24 21:07> Critical Care Time Critical Care Time Critical Care Time: No <Davida Nunez PA-C - Last Filed: 05/21/24 10:05> Discharge Plan Discharge Clinical Impression: Pyelonephritis, Opacity of lung on imaging study Sepsis Qualifiers: Sepsis type: sepsis due to unspecified organism Sepsis acute organ dysfunction status: unspecified Qualified Code(s): A41.9 - Sepsis, unspecified organism <Davida Nunez PA-C - Last Filed: 05/21/24 10:05> Patient Disposition: Still a Patient <Davida Nunez PA-C - Last Filed: 05/21/24 10:05> Condition: Stable <Davida Nunez PA-C - Last Filed: 05/21/24 10:05>
--- NOTE | 2024-05-20 15:49 | ECG_ITS ---
Test Date: 2024-05-20 16:14:09 Measurements Intervals [place] Rate: 102 P: -16 CO: 144 QRS: 29 QRSD: 79 T: 29 QT: 289 QTc: 378 Interpretive Statements SINUS TACHYCARDIA BASELINE ARTIFACT- I, II, III, AVR, AVL, AVF, V1-V6 BORDERLINE T WAVE ABNORMALITY- ANTERIOR LEADS BORDERLINE ECG No previous ECG available for comparison Electronically Signed On 05-20-2024 17:53:30 CDT by Felix Giron D.O.
[2024-05-20 17:17] LABS: Influenza A QL RT-PCR Negative (Negative); Influenza B QL RT-PCR Negative (Negative); RSV RNA, RT-PCR Negative (Negative); SARS-CoV-2 RNA PCR Negative (Negative)
[2024-05-20 17:47] LABS: Basophils Percent Auto 0.2 % (0.2-1.2); Eosinophils Percent Auto 0.1 % (0-4.4); Hematocrit 31.9 % (37.0-47.0); Hemoglobin 11.2 g/dL (12.0-15.0); Immature Granulocyte Absolute 0.03 K/mm3 (0.00-0.031); Immature Granulocyte Percent A 0.4 % (0-0.5); Lymphocytes Absolute Auto 0.54 K/mm3 (0.9-3.2); Lymphocytes Percent Auto 6.6 % (18.3-44.2); Mean Corpuscular HGB Conc 35.1 g/dl (32-36); Mean Corpuscular Hemoglobin 34.6 pg (26-34); Mean Corpuscular Volume 98.5 fl (80-100); Mean Platelet Volume 9.2 fl (7.4-10.4); Monocytes Percent Auto 12.8 % (2.6-8.5); Neutrophils Absolute Auto 6.5 K/mm3 (1.3-6.7); Neutrophils Percent Auto 79.9 % (45.5-73.1); Platelet Count Result 149 k/mm3 (150-375); Red Blood Count 3.24 M/mm3 (4.2-5.4); Red Cell Distribution Width 13.2 % (11.5-14.5); White Blood Count 8.2 K/mm3 (4.5-10.0)
--- NOTE | 2024-05-20 17:58 | ED_ITS ---
HPI - Fever General Chief Complaint: Fever Stated Complaint: fever x 5 days, peeing dark blood, abd bloating Time Seen by Provider: 05/20/24 15:48 Source: patient Mode of arrival: ambulatory Limitations: no limitations History of Present Illness HPI Narrative: Patient is a 28-year-old female, with PMH of IVDA, who presents the ED with fevers, abdominal pain. Patient reports she has been ill for the last 5 days with fevers, Tmax 104F, left-sided abdominal pain, abdominal bloating, nausea, vomiting, dark urine. She has been taking ibuprofen and Tylenol for her fevers, but states she has had a hard time controlling them. Reports abd pain is worse with deep inspiration. She also reports body aches, chills, headache. She was seen at an outside ED yesterday, diagnosed with a urinary tract infection, rec eived IV fluids and IV antibiotics, but was not discharged on antibiotics. Was notified by her primary care doctor to return to the ED today as symptoms have continued. Patient last took ibuprofen around 2:00 p.m.. Temperature upon arrival 100.6? F. Denies dysuria, diarrhea, constipation, last bowel movement 2 days ago. Related Data Allergies Allergy/AdvReac Type Severity Reaction Status Date / Time No Known Allergies Allergy Verified 05/20/24 15:52 Review of Systems Review of Systems: CONSTITUTIONAL: See HPI. GASTROINTESTINAL: See HPI. GENITOURINARY: See HPI. MUSCULOSKELETAL: Reports myalgia. NEUROLOGIC: see HPI. All systems reviewed & are unremarkable except as noted in HPI and below PMFSH Past Medical History Medical History Patient denies medical problems Surgical History Surgical History No pertinent past surgical history Social History Social History Smoking status: Never smoker Substance use: current Substance use type: amphetamines and IV drugs Exam Narrative: GENERAL: Well appearing, well-nourished, non-toxic, in no acute distress. HEAD: Normocephalic, atraumatic. RESPIRATORY: Airway patent, respirations nonlabored. Clear to auscultation bilaterally, no rales, rhonchi, wheezing. CARDIOVASCULAR: Tachycardic with regular rhythm. No appreciable murmur. ABDOMINAL: TTP in left mid and upper abdomen, abdomen is mildly distended, but still soft. Normoactive BS. MUSCULOSKELETAL: Moves all extremities. No gross deformities. Mild swelling and fullness noted of paz hands. SKIN: Warm, dry, normal color. NEURO: A&O X3. Speech clear. Cranial nerves II-XII grossly intact. Steady gait. No ataxic movements. PSYCHIATRIC: Appropriate mood and affect. Normal interaction. Course Vital Signs Vital signs: Vital Signs Temperature 100.6 F H 05/20/24 15:45 Pulse Rate 110 H 05/20/24 15:45 Respiratory Rate 20 05/20/24 15:45 Blood Pressure 126/82 05/20/24 15:45 Pulse Oximetry 100 05/20/24 15:45 Oxygen Delivery Room Air 05/20/24 15:45 Temperature 100.6 F H 05/20/24 15:45 Pulse Rate 110 H 05/20/24 15:45 Respiratory Rate 20 05/20/24 15:45 Blood Pressure 126/82 05/20/24 15:45 Pulse Oximetry 100 05/20/24 15:45 Oxygen Delivery Room Air 05/20/24 15:45 MDM - Fever MDM Narrative Medical decision making narrative: Patient presented to ED with 5 day history of fevers, abdominal pain, urinary complaints, nausea, vomiting. Patient tachycardic and febrile upon arrival. Fluids and Tylenol initiated. Cbc without leukocytosis. White blood cell count of 8.2. Minimal anemia at 11.2. No recent records to compare to. CMP unremarkable, stable electrolytes/kidney function. Viral swabs are negative. Lactic acid WNL at 1.0. blood cultures were obtained. Medical Records Attestation: I reviewed the patient's medical records. Lab Data Attestation: I reviewed the patient's lab results. 05/20/24 17:39 05/20/24 17:39 Labs: Lab Results 05/20/24 05/20/24 05/20/24 Range/Units 16:36 17:39 18:04 WBC 8.2 (4.5-10.0) K/mm3 RBC 3.24 L (4.2-5.4) M/mm3 Hgb 11.2 L (12.0-15.0) g/dL Hct 31.9 L (37.0-47.0) % MCV 98.5 (80-100) fl MCH 34.6 H (26-34) pg MCHC 35.1 (32-36) g/dl RDW 13.2 (11.5-14.5) % Plt Count 149 L (150-375) k/mm3 MPV 9.2 (7.4-10.4) fl Immature Gran % (Auto) 0.4 (0-0.5) % Neut % (Auto) 79.9 H (45.5-73.1) % Lymph % (Auto) 6.6 L (18.3-44.2) % Falls % (Auto) 12.8 H (2.6-8.5) % Eos % (Auto) 0.1 (0-4.4) % Baso % (Auto) 0.2 (0.2-1.2) % Lymph # (Auto) 0.54 L (0.9-3.2) K/mm3 Falls # (Auto) 1.0 H (0.1-0.6) K/mm3 Eos # (Auto) 0.0 (0-0.3) K/mm3 Baso # (Auto) 0.0 (0.0-0.1) K/mm3 Abs Immat Gran (auto) 0.03 (0.00-0.031) K/mm3 Absolute Neuts (auto) 6.5 (1.3-6.7) K/mm3 Absolute Nucleated RBC 0.000 (0.0-0.012) K/mm3 Nucleated RBC % 0.0 (0.0-0.2) % PT Pending INR Pending APTT Pending D-Dimer Pending Sodium 131 L (137-145) mmol/L Potassium 3.9 (3.4-5.0) mmol/L Chloride 99 (98-107) mmol/L Carbon Dioxide 23 (22-30) mmol/L Anion Gap 9 (4-12) mmol/L BUN 6 L (7-17) mg/dL Creatinine 0.80 (0.7-1.0) mg/dL Estim Creat Clear Calc 70 ml/min Estimated GFR > 60 (59 - ) Glucose 102 (65-110) mg/dL Lactic Acid 1.0 (0.7-2.0) mmol/L Calcium 8.8 (8.4-10.2) mg/dL Total Bilirubin 0.7 (0.2-1.3) mg/dL AST 36 (14-36) U/L ALT 24 (6-35) U/L Alkaline Phosphatase 171 H (38-126) U/L C-Reactive Protein Pending Total Protein 7.0 (6.3-8.2) g/dL Albumin 3.5 (3.5-5.1) g/dL Lipase 33 (23-300) U/L Urine Color Pending Urine Appearance Pending Urine pH Pending Ur Specific [place] Pending Urine Protein Pending Urine Glucose (UA) Pending Urine Ketones Pending Ur Blood (Man) Pending Urine Nitrate Pending Urine Bilirubin Pending Urine Urobilinogen Pending Leukocyte Esterase Rfl Pending Urine Opiates Screen Pending Urine Methadone Screen Pending Ur Barbiturates Screen Pending Ur Phencyclidine Scrn Pending Ur Amphetamine Screen Pending U Benzodiazepines Scrn Pending Urine Cocaine Screen Pending U Cannabinoids Screen Pending Influenza A (RT-PCR) Negative (Negative) Influenza B (RT-PCR) Negative (Negative) RSV (RT-PCR) Negative (Negative) SARS-CoV-2 RNA (RT-PCR) Negative (Negative) Imaging Data Attestation: I personally reviewed and interpreted this imaging study as follows: ECG Data EKG #1: Attestation: I personally reviewed and interpreted this ECG as follows: ECG completion date: 05/20/24 ECG completion time: 16:14 EKG Interpretation: tachycardia (102), sinus rhythm, non-specific ST changes and other ( Baseline artifact) Discharge Plan Discharge Prescriptions: No Action ondansetron 4 mg tablet,disintegrating 4 mg PO Q8H PRN (Reason: nausea and vomiting) 4 Days Qty: 10 0RF famotidine [Pepcid] 40 mg tablet 40 mg PO DAILY Qty: 14 0RF Follow-up/Referrals: UNKNOWN,DOCTOR [Primary Care Provider] -
[2024-05-20] MEDS: SODIUM CHLORIDE 0.9% IV 1,000 ML 999 ML IV CONT ×2 (18:06→18:54)
[2024-05-20] MEDS: ACETAMINOPHEN 500 MG TABLET 1000 MG PO (18:07)
[2024-05-20 18:11] LABS: Alanine Aminotransferase 24 U/L (6-35); Albumin Level 3.5 g/dL (3.5-5.1); Alkaline Phosphatase 171 U/L (38-126); Anion Gap 9 mmol/L (4-12); Aspartate Amino Transferase 36 U/L (14-36); Bilirubin,Total 0.7 mg/dL (0.2-1.3); Blood Urea Nitrogen 6 mg/dL (7-17); Calcium 8.8 mg/dL (8.4-10.2); Carbon Dioxide 23 mmol/L (22-30); Chloride 99 mmol/L (98-107); Estimated CRCL calculation 70 ml/min; Estimated Glomerular Filt Rate > 60; Glucose 102 mg/dL (65-110); Lipase 33 U/L (23-300); Potassium 3.9 mmol/L (3.4-5.0); Sodium 131 mmol/L (137-145)
[2024-05-20 18:15] LABS: INR 1.2; Prothrombin Time 15.7 Seconds (11.1-14.7)
[2024-05-20 18:16] LABS: Partial Thromboplastin Time 47.8 Seconds (22.3-36.8)
[2024-05-20 18:17] LABS: Appearance Urine Cloudy (Clear); Bacteria Urine Rare /hpf; Bilirubin Urine Negative (Negative); Blood Urine 1+ (Negative); Color Urine Yellow (Yellow); Glucose Urine UA Negative (Negative); Ketones Urine Negative (Negative); Leukocyte Esterase Ur 3+ LEU/UL (Negative); Nitrate Urine Negative (Negative); Non Pathogenic Casts 0-2; Protein Urine Trace mg/dL (Negative); RBC Urine 0-2 /hpf (0-2); Specific Grav Ur 1.008 (1.001-1.035); Squamous Epithelial Cell Urine Few /hpf (Few); WBC Urine 21-50 /hpf (0-3)
[2024-05-20 18:22] LABS: Add Urine Microscopic? YES
[2024-05-20 18:30] LABS: D Dimer 1.84 ug/mL (<0.48)
[2024-05-20 18:33] LABS: Barbiturate Screen Urine Negative (Negative); Benzodiazepines Screen Urine Negative (Negative)
[2024-05-20 18:34] LABS: Amphetamine Screen Urine Negative (Negative); Cocaine Screen Urine Negative (Negative); Methadone Screen Urine Negative (Negative); Opiate Screen Urine Negative (Negative); Phencyclidine Screen Urine Negative (Negative)
[2024-05-20 18:47] LABS: Cannabinoid Screen Urine Negative (Negative)
[2024-05-20 20:21] VITALS: BP 118/76; PULSE 84; RESP 16; TEMP 37.7; O2SAT 100
--- NOTE | 2024-05-20 20:54 | P.HP_ITS ---
H&P: HPI History of Present Illness Date/Time: 05/20/24 20:54 Chief Complaint: Fevers Narrative: This is a 28-year-old female with past medical history significant for IV drug use however patient denies recent use of drugs has not used IV drugs in over 4 years presents to the emergency room with fevers chills night sweats nausea vomiting lower back pain and flank pain for the last 5 days or so had been to the urgent care where she was briefed right antibiotics were however with no improvement decided to come to the emergency room. preliminary workup was significant for CT of abdomen and pelvis with pyelo nephritis EXAMINATION: CTA chest PE abdomen pel DATE: 05/20/2024 19:36 INDICATION: L chest/abd pain, pleuritic pain, fevers, N/V TECHNIQUE: Computed tomography angiography (CTA) of the chest was performed with 100 mL Omnipaque-350 intravenous contrast timed to evaluate the pulmonary arteries, followed by portal venous phase imaging of the abdomen and pelvis. Coronal maximum intensity projection 3D-reconstructions were created by the technologist. The dose-length product (DLP) was 583.33 mGy-cm. Automated exposure control and iterative reconstruction technique were employed. COMPARISON: None. FINDINGS: CHEST: Lung parenchyma and airways: Scattered centrilobular nodular and tree-in-bud opacities, most notable in the right lung. Calcified right lower lobe granuloma. Dependent atelectasis. Pleura: Unremarkable. Thoracic inlet, axillae and chest wall: No thyroid or soft tissue mass. Thoracic aorta: No significant dilation. No dissection. Mediastinum: Normal. Heart and pericardium: Normal. Coronary artery calcifications: Absent. Thoracic bones: No acute osseous finding. Pulmonary arteries: Study quality: Adequate. No pulmonary emboli detected. ABDOMEN/PELVIS: Liver: Enlarged. Biliary/Gallbladder: Partially contracted gallbladder with pericholecystic fluid. No bile duct dilation. Pancreas: No mass or duct dilation. Spleen: Normal. Adrenals:No mass. Kidneys: Patchy left renal parenchymal enhancement without focal fluid collection. Mild bilateral ureterectasis and urothelial enhancement. GI tract: No small or large bowel dilation. Normal appendix. Diverticulosis without diverticulitis. Mesentery/Peritoneum: No ascites, mass, or free air. Retroperitoneum: No mass. Pelvis: Fibroid uterus. Normal ovaries. Mild urinary bladder wall thickening and stranding. Soft Tissues: Soft tissues and body wall unremarkable. Abdominopelvic bones: No acute osseous finding. IMPRESSION: No CT evidence of acute pulmonary embolus. Pulmonary opacities may reflect hypersensitivity pneumonitis, respiratory bronchiolitis, or infectious airways disease. Hepatomegaly. Pericholecystic fluid, a nonspecific finding. Correlate with biliary labs. Left pyelonephritis, likely secondary to ascending infection from cystitis. [facility] Past Medical History Medical History Patient denies medical problems Surgical History Surgical History No pertinent past surgical history Social History Social History Smoking status: Never smoker Second hand tobacco smoke exposure: Yes Substance use: never Substance use type: does not use Do You Feel Safe in your Home?: Yes Lack of Transportation: YES Lack of Food: Sometimes True Current Housing: I Have Housing Concerned About Future Housing: No Difficulty Paying Gas/Electric Bills: No Difficulty Paying for Meds: No Currently Unemployed: No Education: High School Diploma/GED Difficulty w/ Childcare or Family Care: No Spiritual care concerns: Yes (Believe in God) Meds Home Medications and Allergies Home Medications Medication Instructions Recorded Confirmed Type No Home Medications 05/20/24 05/20/24 History Allergies Allergy/AdvReac Type Severity Reaction Status Date / Time No Known Allergies Allergy Verified 05/20/24 15:52 Vital Signs Vital Signs - 24 hr 05/20/24 15:45 05/20/24 20:21 Temperature 100.6 F H 99.8 F H Pulse Rate 110 H 84 Respiratory Rate 20 16 Blood Pressure 126/82 118/76 Pulse Oximetry 100 100 Oxygen Delivery Room Air Exam Narrative: laying in a stretcher Const: General: comfortable, no acute distress, well developed, alert, awake, ill appearing acutely and average body habitus Nutritional Appearance: average body habitus Orientation/consciousness: patient oriented x3 HENMT: Head: normal to inspection, normocephalic and atraumatic Ears: hearing grossly normal bilaterally Face/Nose/Sinus: normal facial exam Face and sinus: normal facial exam Eyes: General: appearance normal, both eyes and all related structures Pupils: Equal, round and reactive pupils present EOM: EOMs intact bilaterally Neck: Neck: full ROM, no lymphadenopathy and no JVD Thyroid: thyroid normal Lymphatic: no lymphadenopathy noted Resp: Effort & Inspection: normal respiratory effort and able to speak in complete sentences Auscultation: clear to auscultation bilaterally Cardio: Jugular venous distension: no JVD Rate: regular rate Rhythm: regular rhythm Heart sounds: S1 normal heart sound present and S2 normal heart sound present GI: GI Palp: Yes Soft to palpation and Yes No hepatosplenomegaly present : General: Yes deferred Skin: Rashes: no rashes Wounds: no wounds Neuro: General: patient oriented x3 and CN's II-XI intact bilaterally Cranial nerves: Yes CN's II-XII intact bilaterally and Yes Equal, round and reactive pupils present Cognition (Neuro): normal cognition Speech: normal speech Gait exam (Neuro): Normal gait present Motor exam (neuro): 5/5 motor strength present throughout Extrem: General: normal to inspection, full ROM, no joint enlargement and no pedal edema H&P: Results Labs Labs: Short CBC 05/20/24 Range/Units 17:39 WBC 8.2 (4.5-10.0) K/mm3 Hgb 11.2 L (12.0-15.0) g/dL Hct 31.9 L (37.0-47.0) % Plt Count 149 L (150-375) k/mm3 BMP 05/20/24 17:39 Sodium 131 L Potassium 3.9 Chloride 99 Carbon Dioxide 23 BUN 6 L Creatinine 0.80 Glucose 102 Calcium 8.8 Liver Function 05/20/24 Range/Units 17:39 Total Bilirubin 0.7 (0.2-1.3) mg/dL AST 36 (14-36) U/L ALT 24 (6-35) U/L Alkaline Phosphatase 171 H (38-126) U/L Albumin 3.5 (3.5-5.1) g/dL Urine 05/20/24 Range/Units 18:04 Urine Color Yellow (Yellow) Urine Appearance Cloudy H (Clear) Urine pH 8.0 (5.0-9.0) Ur Specific [place] 1.008 (1.001-1.035) Urine Protein Trace (Negative) mg/dL Urine Glucose (UA) Negative (Negative) mg/dL Assessment and Plan Assessment and plan (1) Sepsis: Qualifiers: Sepsis acute organ dysfunction status: unspecified Sepsis type: sepsis due to unspecified organism Qualified Code(s): A41.9 - Sepsis, unspecified organism Code(s): A41.9 - Sepsis, unspecified organism Status: Acute Assessment and Plan: Admit to [facility] Started on broad spectrum antibiotics cultures in progress (2) Pyelonephritis: Code(s): N12 - Tubulo-interstitial nephritis, not specified as acute or chronic Status: Acute Assessment and Plan: On Merrem (3) Multilobar lung infiltrate: Code(s): R91.8 - Other nonspecific abnormal finding of lung field Status: Acute Assessment and Plan: Continue to monitor Repeat chest xr as needed Hospitalist MIPS Advance Care Plan I have confirmed that the patient's Advanced Care Plan is present, code status is documented, or surrogate decision maker is listed in patient medical record.: Yes Medication Reconciliation I have utilized all available resources to obtain, update and review the patients current medications (includes all prescriptions, OTC, herbals, cannabis, and nutritional supplements).: Yes
[2024-05-20 20:55] LABS: CRP 20.5 mg/dL (<1.0)
[2024-05-20] MEDS: MEROPENEM 1 GM/NS 100 ML 1 GM/100 ML BAG IVPB (21:52)
[2024-05-20] MEDS: SODIUM CHLORIDE 0.9% IV 1,000 ML 100 ML IV CONT (21:52)
[2024-05-20 22:19] VITALS: BP 123/73; PULSE 86; RESP 16; TEMP 37.4; O2SAT 100
--- NOTE | 2024-05-20 22:26 | ADMGEN ---
This patient, Brittny Wagner, was admitted to [address] [place] [address] Room 300-01. Patient/family oriented to hospital policies and general routines including ID bracelet, bed and alarms, visiting hours, pain management, procedures, bathroom and other care routines, personal items, smoking policy, room service/diet, and visiting hours. Information on how to activate the Rapid Response Team has been discussed. Patient/Family are encouraged to report perceived risks to care and to ask questions if they do not understand what they are told or what they should do.
[2024-05-20 22:28] VITALS: BMI 27.6
[2024-05-20 22:41] VITALS: BP 122/70; PULSE 85; RESP 20; TEMP 36.2; O2SAT 98; BMI 27.4
[2024-05-20] MEDS: MORPHINE SULFATE (*CRX) 4 MG/ML INJ IV PUSH (23:00)
[2024-05-21] VITALS (14 sets, daily range): BP systolic 121–143; BP diastolic 76–91; PULSE 77–117; RESP 18–20; TEMP 36.7–38.1; O2SAT 98–100
[2024-05-21] MEDS: IPRATROPIUM 0.5 MG/ALBUTEROL SULFATE 2.5 MG AMPUL.NEB 3 ML INHALATION ×2 (00:04→20:46)
[2024-05-21] MEDS: MORPHINE SULFATE (*CRX) 4 MG/ML INJ IV PUSH ×2 (03:35→21:46)
[2024-05-21] MEDS: ONDANSETRON INJ 4 MG/2 ML VIAL IV PUSH (03:36)
[2024-05-21] MEDS: ACETAMINOPHEN 325 MG TABLET 650 MG PO ×2 (03:36→13:21)
[2024-05-21] MEDS: guaiFENesin/DEXTROMETHORPHAN 10 ML UDC PO ×2 (03:50→19:59)
[2024-05-21] MEDS: MEROPENEM 1 GM/NS 100 ML 1 GM/100 ML BAG IVPB (05:56)
[2024-05-21] MEDS: cefTRIAXone 2 GM/NS 100 ML 2 GM/100 ML BAG IVPB (10:16)
[2024-05-21] MEDS: AZITHROMYCIN 250 MG TABLET 500 MG PO (10:18)
[2024-05-21] MEDS: SODIUM CHLORIDE 0.9% IV 1,000 ML 100 ML IV CONT ×2 (10:47→19:58)
--- NOTE | 2024-05-21 11:50 | P.PNIM_ITS ---
Progress Note: A&P Assessment and Plan (1) Multilobar lung infiltrate: Code(s): R91.8 - Other nonspecific abnormal finding of lung field Status: Acute (2) Sepsis: Qualifiers: Sepsis acute organ dysfunction status: unspecified Sepsis type: sepsis due to unspecified organism Qualified Code(s): A41.9 - Sepsis, unspecified [facility] Code(s): A41.9 - Sepsis, unspecified organism Status: Acute (3) Pyelonephritis: Code(s): N12 - Tubulo-interstitial nephritis, not specified as acute or chronic Status: Acute Plan This is a pleasant 28-year-old female with PMH remote IV drug abuse per patient she last used 4 years ago. Her sister was also an IV drug user and diet of endocarditis at the age of 30. The patient presents with fevers chills night sweats nausea vomiting lower back pain and flank pain for 5 days prior to admission. She went to an urgent care and was given IV antibiotics and then discharged on p.o. antibiotics. There is no improvement so she presented to [place] [facility]. Patient was started on meropenem and admitted on 05/20/2024. Reported T-max of 104? F. received 2 L normal saline bolus. She was he modynamically stable. CTA chest abdomen pelvis demonstrated no acute evidence of pulmonary embolism, pulmonary opacities, hepatomegaly, nina cholecystic fluid, left pyelonephritis. # sepsis due to left-sided pyelonephritis # multifocal bacterial pneumonia # history of IV drug abuse for years ago # exposure to secondhand smoke -status: Acute, severe -presented with fever and tachycardia. Lactic acid normal at 1.0. -received 2 L normal saline bolus. Continue normal saline at 100 cc/hour. Meropenem changed to ceftriaxone 2 g IV q.day and azithromycin for 5 days. Pr evious urine culture from 01/12/2023 resulted Klebsiella pneumonia resistant to ampicillin and ampicillin sulbactam and Zosyn and nitrofurantoin, sensitive to cephalosporins. -blood cultures pending, urine cultures pending, mycoplasma, Legionella, pneumococcal antigen. Pending surface echo more so ordered for history of orthopnea and lower extremity swelling -has coarse breath sounds but not requiring oxygen. DuoNebs p.r.n.. Viral screen negative. Since she is having posttussive emesis and repeated dry cough which is causing her pain, start Tessalon Perles 200 mg p.o. t.i.d.. Orthopnea and fleeting edema since October 2023 Elevated CRP -she reports an interesting history of orthopnea since October of 2023 along with migrating swelling of the large joints of the lower extremities and the bilateral wrist along with intermittent coldness/blue discoloration. Check ZEYAD screen with reflex. Check surface echocardiogram to assess for cardiomyopathy. This will also allow a preliminary look into the possible presence of vegetations. # transaminitis and hepatomegaly, alcohol use -status: Possibly chronic -unclear etiology. Check hepatology labs. and HIV antibody/antigen testing 4th generation.. Continue to monitor liver enzymes -could be due to alcohol use. Counseling provided. She drinks 3 double shots of hard liquor usually on the weekends F/E/N: Normal saline, regular diet, replace electrolytes as needed GI prophylaxis: Not indicated DVT prophylaxis: Lovenox 40 mg subQ q.day Lines: Peripheral IV Code Status: Patient wishes to be full code Dispo: Stable condition on med floor with telemetry Medication reconciliation obtained via the following: Nurse completed on admission Social Drivers of Health -Living arrangements, functional status, significant history: Lives with a friend. -Patient was screened for food insecurity, housing instability, transportation needs, utility difficulties, and interpersonal safety. Social Work not consulted, no needs identified. Agents of Abuse -Illicit drug abuse: Denies -ETOH abuse: As above -Tobacco/nicotine: Exposed to secondhand smoke -Energy drinks: Denies -Additional supplements: Denies Note to the patient: The 21st Century Cures Act makes medical notes like these available to patients in the interest of transparency. Please be advised this is a medical document. It is intended for [id number] communication. It is written in medical language and may contain unfamiliar abbreviations or verbiage. Components may appear blunt or direct. Medical documents are intended to carry relevant information, facts as evident, and the clinical opinion of the practitioner at the time of the encounter. This note was generated by a speech recognition system and may contain inherent errors or omissions not intended by the user. Grammatical errors, random word insertions, deletions, pronoun errors and incomplete sentences are occasional consequences of this technology due to software limitations. Not all errors are caught or corrected. If there are questions or concerns about the content of this note or information contained within the body of this dictation they should be addressed directly with author for clarification. The file time of this note does not necessarily represent the time the patient was seen. Subjective Date/time seen: 05/21/24 11:50 Interval history: Patient reports dry cough kept her up at night. She also experience fever and chills and post-tussive emesis. She reports her abdomen is distended more than her baseline and she still has a left-sided abdominal/flank pain. She provides more history about her breathing, she has had difficulty breathing since about October. It is composed to secondhand smoke, denies IV drug use or any drug use. She rarely drinks alcohol. She has more shortness of breath when she lies flat. She has an odd presentation of swelling in the left knee right knee left ankle right ankle left wrist and right wrist which alternate in a fleeting fashion. 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 Review of Systems Review of Systems: All systems reviewed & are unremarkable except as noted in HPI and below (Subjective) Exam Const: General: comfortable and no acute distress Other: Constantly dry coughing Eyes: Pupils: Equal, round and reactive pupils present Neck: Neck: supple Resp: Effort & Inspection: normal respiratory effort Other: Coarse breath sound Cardio: Rate: regular rate Rhythm: regular rhythm Heart sounds: no gallops, no murmurs and no rubs GI: Inspection: distended GI Palp: Yes Soft to palpation and No Tenderness to palpation present (GI) Auscultation: normal bowel sounds Extrem: General: no edema Other: Pedal pulses palpable. Feet are warm to touch. Objective Data Vital Signs Vital Signs: Vital Signs - 24 hr 05/20/24 15:45 05/20/24 20:21 05/20/24 22:19 Temperature 100.6 F H 99.8 F H 99.4 F Pulse Rate 110 H 84 86 Respiratory Rate 20 16 16 Blood Pressure 126/82 118/76 123/73 Pulse Oximetry 100 100 100 Oxygen Delivery Room Air 05/20/24 22:41 05/21/24 00:00 05/21/24 03:36 Temperature 97.2 F L 100.5 F H Pulse Rate 85 77 Respiratory Rate 20 Blood Pressure 122/70 Pulse Oximetry 98 Oxygen Delivery 05/21/24 03:38 05/21/24 04:00 05/21/24 08:05 Temperature 100.5 F H Pulse Rate 117 H 114 H 101 H Respiratory Rate 20 Blood Pressure 143/91 H Pulse Oximetry 98 98 Oxygen Delivery Room Air Intake/Output Intake/Output: Intake & Output 05/18/24 05/19/24 05/20/24 05/21/24 23:59 23:59 23:59 23:59 Intake Total 2149 1999 Balance 2149 1999 Meds/Results Medications: Active Medications Generic Name Dose Route Start Last Admin Trade Name Freq PRN Reason Stop Dose Admin Acetaminophen 650 mg 05/20/24 20:57 05/21/24 03:36 Acetaminophen 325 Mg Tablet PO 650 mg Q4H PRN Administration Mild Pain (1-3) or Fever Albuterol/Ipratropium 3 ml 05/20/24 23:34 05/21/24 00:04 Ipratropium 0.5 Mg/Albuterol Sulfate 2.5 Mg Ampul.Neb 3 Ml INHALATION 3 ml Q6HRT PRN Administration Shortness Of Breath Azithromycin 500 mg 05/21/24 10:15 05/21/24 10:18 Azithromycin 250 Mg Tablet PO 05/25/24 09:01 500 mg DAILY BRITNEY Administration Benzonatate 200 mg 05/21/24 13:00 Benzonatate 100 Mg Capsule PO TID BRITNEY Enoxaparin Sodium 40 mg 05/21/24 11:40 Enoxaparin 40 Mg/0.4 Ml Syringe SUB-Q DAILY BRITNEY Guaifenesin/Dextromethorphan 10 ml 05/21/24 03:28 05/21/24 03:50 Guaifenesin/Dextromethorphan 10 Ml Udc PO 10 ml Q6H PRN Administration Cough Sodium Chloride 1,000 mls @ 100 mls/hr 05/20/24 21:00 05/21/24 10:47 Normal Saline Iv IV CONT 100 mls/hr .Q10H BRITNEY Administration Ceftriaxone Sodium 2 gm in 100 mls @ 200 mls/hr 05/21/24 11:00 05/21/24 10:16 Rocephin 2 Gm/Ns 100 Ml IVPB 200 mls/hr DAILY BRITNEY Administration Ibuprofen 400 mg 05/20/24 20:57 Ibuprofen 400 Mg Tablet PO Q6H PRN Mild Pain (4-6) Or Fever Morphine Sulfate 4 mg 05/20/24 20:57 05/21/24 03:35 Morphine Sulfate (*Crx) 4 Mg/Ml Inj IV PUSH 4 mg Q2H PRN Administration Pain Rated 7-10 Ondansetron HCl 4 mg 05/20/24 20:57 05/21/24 03:36 Ondansetron Inj 4 Mg/2 Ml Vial IV PUSH 4 mg Q4H PRN Administration Nausea Perflutren Lipid Microsphere 0 ml 05/21/24 11:40 Perflutren Lipid Microspheres 1.5 Ml Vial Diluted To 10 Ml Total Volume IV PUSH 05/24/24 11:40 ONCE PRN adequate visualization Protocol Radiology Results: ITS Impressions Chest/Abdomen/Pelvis CTA 05/20/24 19:39 IMPRESSION: No CT evidence of acute pulmonary embolus. Pulmonary opacities may reflect hypersensitivity pneumonitis, respiratory bronchiolitis, or infectious airways disease. Hepatomegaly. Pericholecystic fluid, a nonspecific finding. Correlate with biliary labs. Left pyelonephritis, likely secondary to ascending infection from cystitis. Labs Labs: Laboratory Results - last 24 hr 05/20/24 05/20/24 05/20/24 16:36 17:39 18:04 WBC 8.2 RBC 3.24 L Hgb 11.2 L Hct 31.9 L MCV 98.5 MCH 34.6 H MCHC 35.1 RDW 13.2 Plt Count 149 L MPV 9.2 Immature Gran % (Auto) 0.4 Neut % (Auto) 79.9 H Lymph % (Auto) 6.6 L [place] % (Auto) 12.8 H Eos % (Auto) 0.1 Baso % (Auto) 0.2 Lymph # (Auto) 0.54 L [place] # (Auto) 1.0 H Eos # (Auto) 0.0 Baso # (Auto) 0.0 Abs Immat Gran (auto) 0.03 Absolute Neuts (auto) 6.5 Absolute Nucleated RBC 0.000 Nucleated RBC % 0.0 PT 15.7 H INR 1.2 APTT 47.8 H D-Dimer 1.84 H Sodium 131 L Potassium 3.9 Chloride 99 Carbon Dioxide 23 Anion Gap 9 BUN 6 L Creatinine 0.80 Estim Creat Clear Calc 70 Estimated GFR > 60 Glucose 102 Lactic Acid 1.0 Calcium 8.8 Total Bilirubin 0.7 AST 36 ALT 24 Alkaline Phosphatase 171 H C-Reactive Protein 20.5 H Total Protein 7.0 Albumin 3.5 Lipase 33 Urine Color Yellow Urine Appearance Cloudy H Urine pH 8.0 Ur Specific [place] 1.008 Urine Protein Trace Urine Glucose (UA) Negative Urine Ketones Negative Ur Blood (Man) 1+ H Urine Nitrate Negative Urine Bilirubin Negative Urine Urobilinogen 1.0 Leukocyte Esterase Rfl 3+ H Urine RBC 0-2 Urine WBC 21-50 H Ur Squamous Epith Cells Few Urine Bacteria Rare Urine Casts 0-2 Urine Opiates Screen Negative Urine Methadone Screen Negative Ur Barbiturates Screen Negative Ur Phencyclidine Scrn Negative Ur Amphetamine Screen Negative U Benzodiazepines Scrn Negative Urine Cocaine Screen Negative U Cannabinoids Screen Negative Influenza A (RT-PCR) Negative Influenza B (RT-PCR) Negative RSV (RT-PCR) Negative SARS-CoV-2 RNA (RT-PCR) Negative
[2024-05-21] MEDS: ENOXAPARIN 40 MG/0.4 ML SYRINGE SUB-Q (13:21)
[2024-05-21] MEDS: BENZONATATE 100 MG CAPSULE 200 MG PO ×2 (13:21→17:46)
[2024-05-21 13:51] LABS: NT Pro B Type Natriuretic Pept 348 pg/mL (19.9-100)
--- NOTE | 2024-05-21 14:00 | ECHO_ITS ---
Patient Info Name: Brittny Wagner Age: 28 years : 1995 Gender: Female Ht: 61 in Wt: 130 lbs BSA: 1.60 m2 HR: 101 bpm BP: 143 / 91 mmHg Heart Rhythm: Sinus Rhythm Technical Quality: Good Exam Date: 05/21/2024 2:07 PM Exam Location: Echo Lab Patient Status: Inpatient Admit Date: 05/20/2024 Staff Ordering Physician: Marielos Mills MD [employer] Operator: Nathalie Sharma RDCS Attending Provider: Elfego Diego MD Exam Type: CA echo doppler color flow Study Info Indications - SOB AND LE EDEMA R06.02 - Shortness of breath - LE EDEMA Complete two-dimensional, color flow and Doppler transthoracic echocardiogram is performed. Summary 1. Left ventricular chamber dimension is normal. 2. Left ventricular systolic function is normal, estimated at 60-65%. 3. The left ventricular diastolic function is normal. 4. Right ventricular systolic function is normal. 5. There is mild tricuspid valve regurgitation. Left Ventricle Left ventricular chamber dimension is normal. Left ventricular systolic function is normal, estimated at 60-65%. There is no increased left ventricular wall thickness. The left ventricular diastolic function is normal. Right Ventricle Right ventricular chamber dimension is normal. Right ventricular systolic function is normal. Left Atria Left atrial chamber dimension is normal. Right Atria Right atrial chamber dimension is normal. Atrial Septum Intact interatrial septum visualized by color flow imaging. Aortic Valve The aortic valve is trileaflet. There is no aortic valve stenosis. There is no aortic valve regurgitation. Pulmonic Valve The pulmonic valve is not well visualized. There is trace pulmonic regurgitation. Mitral Valve The mitral valve has normal leaflets. There is trace mitral valve regurgitation. Tricuspid Valve There is mild tricuspid valve regurgitation. Pericardium/Pleural There is no pericardial effusion. Inferior Vena Cava Dilated inferior vena cava with <50% collapse upon inspiration consistent with elevated right atrial pressure, 15 mmHg. Aorta The aortic root size at the sinus of Valsalva is normal. Left Ventricular Outflow Tract Name Value Normal LVOT 2D LVOT Diameter 1.8 cm LVOT Doppler LVOT Peak Velocity 114 cm/s LVOT Peak Gradient 5 mmHg LVOT Mean Gradient 4 mmHg LVOT VTI 26 cm LVOT VTI/AV VTI Ratio 0.8 LVOT Stroke Volume 54 ml LVOT CO 5.1 l/min LVOT CI 3.2 l/min/m2 Pulmonic Valve Name Value Normal RVOT Doppler RVOT Peak Gradient 3 mmHg PV Doppler PV Peak Velocity 91 cm/s PV Peak Gradient 3 mmHg Mitral Valve Name Value Normal MV Doppler MV Decel [place] 682 cm/s2 MV PHT 39 ms MV Area (PHT) 5.6 cm2 4.0-5.0 MV Diastolic Function MV E Peak Velocity 93 cm/s MV A Peak Velocity 71 cm/s MV E/A 1.3 MV Decel Time 136 ms MV Annular TDI MV Septal e' Velocity 11.9 cm/s >=8.0 MV E/e' (Septal) 7.8 <=8.0 MV Lateral e' Velocity 11.9 cm/s >=10.0 MV E/e' (Lateral) 7.8 <=8.0 MV e' Average 11.93 MV E/e' (Average) 7.8 Tricuspid Valve Name Value Normal TV Regurgitation Doppler TR Peak Velocity 245 cm/s TR Peak Gradient 20 mmHg Estimated PAP/RSVP RA Pressure 15 mmHg <=5 PA Systolic Pressure 39 mmHg <36 RV Systolic Pressure 39 mmHg <36 TV Annular TDI TV Lateral Brittany s' Velocity 13.0 cm/s 9.5-18.7 Aorta Name Value Normal Ascending Aorta Ao Root Diameter (MM) 3.0 cm Ao Root Diam Index (MM) 1.9 cm/m2 Ao [place] Diameter 2.6 cm 2.3-2.9 Aortic Valve Name Value Normal AV Doppler AV Peak Velocity 163 cm/s AV Peak Gradient 8 mmHg AV Mean Gradient 5 mmHg AV VTI 30 cm AV Area (Cont Eq VTI) 2.2 cm2 >=3.0 AV Area (Cont Eq Zachary) 1.7 cm2 AV V1/V2 Ratio 0.70 AV Regurgitation 2D LVOT Area 2.4 cm2 AV Regurgitation Doppler AR Decel Time 1,510 ms AR Decel [place] 262 cm/s2 AR PHT 438 ms Ventricles Name Value Normal LV Dimensions 2D/MM IVS Diastolic Thickness (2D) 0.9 cm 0.6-1.0 LVID Diastole (2D) 4.4 cm 3.8-5.2 LVIW Diastolic Thickness (2D) 0.8 cm 0.6-0.9 LVID Systole (2D) 2.8 cm 2.2-3.5 LVOT Diameter 1.8 cm LV Mass (2D Cubed) 114.98 g 67.00-162.00 LV Mass Index (2D Cubed) 72 g/m2 43-95 Relative Wall Thickness (2D) 0.35 LV Fractional Shortening/Ejection Fraction 2D/MM LV Fractional Shortening (2D) 36 % 27-45 LV EF (2D Teicholz) 66 % 54-74 LV Diastolic Volume (4C MOD) 79 ml LV EF (4C MOD) 73 % LV Diastolic Volume (2C MOD) 70 ml LV EF (2C MOD) 67 % LV Diastolic Volume (BP MOD) 76 ml 46-106 LV Diastolic Volume Index (BP MOD) 48 ml/m2 29-61 LV Systolic Volume (BP MOD) 23 ml 14-42 LV Systolic Volume Index (BP MOD) 14 ml/m2 8-24 LV EF (BP MOD) 70 % 54-74 LV Diastolic Length (4C) 8.7 cm LV Systolic Length (4C) 5.4 cm LV Stroke Volume (4C MOD) 58 ml Atria Name Value Normal LA Dimensions LA Dimension (MM) 4.0 cm 2.7-3.8 LA Volume (4C A-L) 42 ml LA Volume (BP A-L) 61 ml RA Dimensions RA Area (4C) 15.0 cm2 <=18.0 Report Signatures
[2024-05-21 14:15] LABS: Hepatitis B Surface Antigen Negative (Negative)
[2024-05-21 14:21] LABS: HAV RESULT Negative (Negative); Hepatitis B Core IgM Result Negative (Negative)
[2024-05-21 14:32] LABS: Hepatitis C Virus Antibody Negative (Negative)
[2024-05-21 14:51] LABS: HIV 1/2 Ab P24 Ag Result Negative (Negative)
[2024-05-21] MEDS: IBUPROFEN 400 MG TABLET PO (19:59)
[2024-05-22] VITALS: PULSE 109
[2024-05-22 04:00] VITALS: PULSE 94
[2024-05-22] MEDS: MORPHINE SULFATE (*CRX) 4 MG/ML INJ IV PUSH ×3 (05:31→21:59)
[2024-05-22 06:00] VITALS: BP 119/72; PULSE 93; RESP 20; TEMP 36.6; O2SAT 97
[2024-05-22 06:30] LABS: Basophils Percent Auto 0.7 % (0.2-1.2); Eosinophils Absolute Auto 0.1 K/mm3 (0-0.3); Eosinophils Percent Auto 2.3 % (0-4.4); Hematocrit 27.5 % (37.0-47.0); Hemoglobin 9.4 g/dL (12.0-15.0); Immature Granulocyte Absolute 0.03 K/mm3 (0.00-0.031); Immature Granulocyte Percent A 0.7 % (0-0.5); Lymphocytes Absolute Auto 1.06 K/mm3 (0.9-3.2); Lymphocytes Percent Auto 24.1 % (18.3-44.2); Mean Corpuscular HGB Conc 34.2 g/dl (32-36); Mean Corpuscular Hemoglobin 34.3 pg (26-34); Mean Corpuscular Volume 100.4 fl (80-100); Mean Platelet Volume 10.1 fl (7.4-10.4); Monocytes Absolute Auto 0.7 K/mm3 (0.1-0.6); Neutrophils Absolute Auto 2.5 K/mm3 (1.3-6.7); Neutrophils Percent Auto 57.2 % (45.5-73.1); Platelet Count Result 152 k/mm3 (150-375); Red Blood Count 2.74 M/mm3 (4.2-5.4); Red Cell Distribution Width 13.4 % (11.5-14.5); White Blood Count 4.4 K/mm3 (4.5-10.0)
[2024-05-22 06:48] LABS: Alanine Aminotransferase 21 U/L (6-35); Albumin Level 2.8 g/dL (3.5-5.1); Alkaline Phosphatase 128 U/L (38-126); Anion Gap 10 mmol/L (4-12); Aspartate Amino Transferase 31 U/L (14-36); Bilirubin,Total 0.4 mg/dL (0.2-1.3); Blood Urea Nitrogen 6 mg/dL (7-17); Calcium 7.8 mg/dL (8.4-10.2); Carbon Dioxide 23 mmol/L (22-30); Chloride 102 mmol/L (98-107); Estimated CRCL calculation 81 ml/min; Estimated Glomerular Filt Rate > 60; Glucose 93 mg/dL (65-110); Magnesium 1.8 mg/dL (1.6-2.3); Potassium 3.8 mmol/L (3.4-5.0); Sodium 135 mmol/L (137-145)
[2024-05-22 06:55] LABS: Procalcitonin 0.5 ng/mL
[2024-05-22 06:59] LABS: CRP 16.2 mg/dL (<1.0)
[2024-05-22 08:00] VITALS: PULSE 90
[2024-05-22] MEDS: SODIUM CHLORIDE 0.9% IV 1,000 ML 100 ML IV CONT (08:03)
[2024-05-22] MEDS: cefTRIAXone 2 GM/NS 100 ML 2 GM/100 ML BAG IVPB (08:48)
[2024-05-22] MEDS: BENZONATATE 100 MG CAPSULE 200 MG PO ×2 (08:48→12:28)
[2024-05-22] MEDS: ENOXAPARIN 40 MG/0.4 ML SYRINGE SUB-Q (08:48)
[2024-05-22] MEDS: AZITHROMYCIN 250 MG TABLET 500 MG PO (08:49)
[2024-05-22] MEDS: ACETAMINOPHEN 325 MG TABLET 650 MG PO ×2 (08:51→22:00)
[2024-05-22 13:54] VITALS: BP 118/96; PULSE 88; RESP 14; TEMP 36.2; O2SAT 93
[2024-05-22 15:08] LABS: Ceruloplasmin. 28 mg/dL (14-48)
--- NOTE | 2024-05-22 16:47 | P.PNIM_ITS ---
Progress Note: A&P Assessment and Plan (1) Multilobar lung infiltrate: Code(s): R91.8 - Other nonspecific abnormal finding of lung field Status: Acute (2) Sepsis: Qualifiers: Sepsis acute organ dysfunction status: unspecified Sepsis type: sepsis due to unspecified organism Qualified Code(s): A41.9 - Sepsis, unspecified [facility] Code(s): A41.9 - Sepsis, unspecified organism Status: Acute (3) Pyelonephritis: Code(s): N12 - Tubulo-interstitial nephritis, not specified as acute or chronic Status: Acute Plan This is a pleasant 28-year-old female with PMH remote IV drug abuse per patient she last used 4 years ago. Her sister was also an IV drug user and diet of endocarditis at the age of 30. The patient presents with fevers chills night sweats nausea vomiting lower back pain and flank pain for 5 days prior to admission. She went to an urgent care and was given IV antibiotics and then discharged on p.o. antibiotics. There is no improvement so she presented to [place] [facility]. Patient was started on meropenem and admitted on 05/20/2024. Reported T-max of 104? F. received 2 L normal saline bolus. She was he modynamically stable. CTA chest abdomen pelvis demonstrated no acute evidence of pulmonary embolism, pulmonary opacities, hepatomegaly, nina cholecystic fluid, left pyelonephritis. May 22: Improved parameters of sepsis. Continue antibiotics. d/c fluids. monitor WBC and CRP. chek respiratory viral panel for presistent dry cough. tessalon did not work, swiwtch to dextromethorphan. Mild tricuspid valve regurg. BNP slightly elevated. # sepsis due to left-sided pyelonephritis # multifocal bacterial pneumonia # history of IV drug abuse for years ago # exposure to secondhand smoke -status: Acute, severe -presented with fever and tachycardia. Lactic acid normal at 1.0. -received 2 L normal saline bolus. Continue normal saline at 100 cc/hour. Meropenem changed to ceftriaxone 2 g IV q.day and azithromycin for 5 days. Previous urine culture from 01/12/2023 resulted Klebsiella pneumonia resistant to ampicillin and ampicillin sulbactam and Zosyn and nitrofurantoin, sensitive to cephalosporins. -blood cultures pending, urine cultures pending, mycoplasma, Legionella, pneumococcal antigen. Pending surface echo more so ordered for history of orthopnea and lower extremity swelling -has coarse breath sounds but not requiring oxygen. DuoNebs p.r.n.. Viral screen negative. Since she is having posttussive emesis and repeated dry cough which is causing her pain, start Tessalon Perles 200 mg p.o. t.i.d.. Orthopnea and fleeting edema since October 2023 Elevated CRP -she reports an interesting history of orthopnea since October of 2023 along with migrating swelling of the large joints of the lower extremities and the bilateral wrist along with intermittent coldness/blue discoloration. Check ZEYAD screen with reflex. Check surface echocardiogram to assess for cardiomyopathy. This will also allow a preliminary look into the possible presence of vegetations. # transaminitis and hepatomegaly, alcohol use -status: Possibly chronic -unclear etiology. Check hepatology labs. and HIV antibody/antigen testing 4th generation.. Continue to monitor liver enzymes -could be due to alcohol use. Counseling provided. She drinks 3 double shots of hard liquor usually on the weekends F/E/N: Stain lock IV, regular diet, replace electrolytes as needed GI prophylaxis: Not indicated DVT prophylaxis: Lovenox 40 mg subQ q.day Lines: Peripheral IV Code Status: Patient wishes to be full code Dispo: Stable condition on medical floor. Medication reconciliation obtained via the following: Nurse completed on admission Social Drivers of Health -Living arrangements, functional status, significant history: Lives with a friend. -Patient was screened for food insecurity, housing instability, transportation needs, utility difficulties, and interpersonal safety. Social Work not consulted, no needs identified. Agents of Abuse -Illicit drug abuse: Denies -ETOH abuse: As above -Tobacco/nicotine: Exposed to secondhand smoke -Energy drinks: Denies -Additional supplements: Denies Note to the patient: The Century Cures Act makes medical notes like these a vailable to patients in the interest of transparency. Please be advised this is a medical document. It is intended for [id number] communication. It is written in medical language and may contain unfamiliar abbreviations or verbiage. Components may appear blunt or direct. Medical documents are intended to carry relevant information, facts as evident, and the clinical opinion of the practitioner at the time of the encounter. This note was generated by a speech recognition system and may contain inherent errors or omissions not intended by the user. Grammatical errors, random word insertions, deletions, pronoun errors and incomplete sentences are occasional consequences of this technology due to software limitations. Not all errors are caught or corrected. If there are questions or concerns about the content of this note or information contained within the body of this dictation they should be addressed directly with author for clarification. The file time of this note does not necessarily represent the time the patient was seen. Subjective Date/time seen: 05/22/24 16:47 Interval history: Today she denies fever chills. She still has a dry cough which is unrelenting Review of Systems Review of Systems: All systems reviewed & are unremarkable except as noted in HPI and below (Subjective) Exam Const: General: comfortable and no acute distress Other: Constantly dry coughing Eyes: Pupils: Equal, round and reactive pupils present Neck: Neck: supple Resp: Effort & Inspection: normal respiratory effort Other: Coarse breath sound Cardio: Rate: regular rate Rhythm: regular rhythm Heart sounds: no gallops, no murmurs and no rubs GI: Inspection: distended GI Palp: Yes Soft to palpation and No Tenderness to palpation present (GI) Auscultation: normal bowel sounds Extrem: General: no edema Other: Pedal pulses palpable. Feet are warm to touch. Objective Data Vital Signs Vital Signs: Vital Signs - 24 hr 05/21/24 20:46 05/21/24 20:58 05/21/24 22:00 Temperature 98.1 F Pulse Rate 92 89 99 Respiratory Rate 20 20 18 Blood Pressure 140/82 Pulse Oximetry 100 Oxygen Delivery 05/21/24 20:00 05/21/24 20:00 05/22/24 06:00 Temperature 97.8 F Pulse Rate 103 H 93 Respiratory Rate 20 Blood Pressure 119/72 Pulse Oximetry 97 Oxygen Delivery Room Air 05/22/24 00:00 05/22/24 04:00 05/22/24 08:50 Temperature Pulse Rate 109 H 94 Respiratory Rate Blood Pressure Pulse Oximetry Oxygen Delivery Room Air 05/22/24 13:54 05/22/24 08:00 Temperature 97.2 F L Pulse Rate 88 90 Respiratory Rate 14 Blood Pressure 118/96 H Pulse Oximetry 93 Oxygen Delivery Intake/Output Intake/Output: Intake & Output 05/19/24 05/20/24 05/21/24 05/22/24 23:59 23:59 23:59 23:59 Intake Total 2150 3378.3 1960 Output Total 500 Balance 2150 2878.3 1960 Meds/Results Medications: Active Medications Generic Name Dose Route Start Last Admin Trade Name Freq PRN Reason Stop Dose Admin Acetaminophen 650 mg 05/20/24 20:57 05/22/24 08:51 Acetaminophen 325 Mg Tablet PO 650 mg Q4H PRN Administration Mild Pain (1-3) or Fever Albuterol/Ipratropium 3 ml 05/20/24 23:34 05/21/24 20:46 Ipratropium 0.5 Mg/Albuterol Sulfate 2.5 Mg Ampul.Neb 3 Ml INHALATION 3 ml Q6HRT PRN Administration Shortness Of Breath Azithromycin 500 mg 05/21/24 10:15 05/22/24 08:49 Azithromycin 250 Mg Tablet PO 05/25/24 09:01 500 mg DAILY BRITNEY Administration Benzonatate 200 mg 05/21/24 13:00 05/22/24 12:28 Benzonatate 100 Mg Capsule PO 200 mg TID BRITNEY Administration Enoxaparin Sodium 40 mg 05/21/24 11:40 05/22/24 08:48 Enoxaparin 40 Mg/0.4 Ml Syringe SUB-Q 40 mg DAILY BRITNEY Administration Guaifenesin/Dextromethorphan 10 ml 05/21/24 03:28 05/21/24 19:59 Guaifenesin/Dextromethorphan 10 Ml Udc PO 10 ml Q6H PRN Administration Cough Sodium Chloride 1,000 mls @ 100 mls/hr 05/20/24 21:00 05/22/24 08:03 Normal Saline Iv IV CONT 100 mls/hr .Q10H BRITNEY Administration Ceftriaxone Sodium 2 gm in 100 mls @ 200 mls/hr 05/21/24 11:00 05/22/24 09:18 Rocephin 2 Gm/Ns 100 Ml IVPB Infused DAILY BRITNEY Infusion Ibuprofen 400 mg 05/20/24 20:57 05/21/24 19:59 Ibuprofen 400 Mg Tablet PO 400 mg Q6H PRN Administration Mild Pain (4-6) Or Fever Morphine Sulfate 4 mg 05/20/24 20:57 05/22/24 15:59 Morphine Sulfate (*Crx) 4 Mg/Ml Inj IV PUSH 4 mg Q2H PRN Administration Pain Rated 7-10 Ondansetron HCl 4 mg 05/20/24 20:57 05/21/24 03:36 Ondansetron Inj 4 Mg/2 Ml Vial IV PUSH 4 mg Q4H PRN Administration Nausea Perflutren Lipid Microsphere 0 ml 05/21/24 11:40 Perflutren Lipid Microspheres 1.5 Ml Vial Diluted To 10 Ml Total Volume IV PUSH 05/24/24 11:40 ONCE PRN adequate visualization Protocol Radiology Results: ITS Impressions Chest/Abdomen/Pelvis CTA 05/20/24 19:39 IMPRESSION: No CT evidence of acute pulmonary embolus. Pulmonary opacities may reflect hypersensitivity pneumonitis, respiratory bronchiolitis, or infectious airways disease. Hepatomegaly. Pericholecystic fluid, a nonspecific finding. Correlate with biliary labs. Left pyelonephritis, likely secondary to ascending infection from cystitis. Venous Doppler Study 05/22/24 15:47 IMPRESSION: Negative right upper extremity venous US. No deep vein thrombosis. Labs Labs: Laboratory Results - last 24 hr 05/21/24 05/22/24 13:02 05:18 WBC 4.4 L RBC 2.74 L Hgb 9.4 L Hct 27.5 L MCV 100.4 H MCH 34.3 H MCHC 34.2 RDW 13.4 Plt Count 152 MPV 10.1 Immature Gran % (Auto) 0.7 H Neut % (Auto) 57.2 Lymph % (Auto) 24.1 [place] % (Auto) 15.0 H Eos % (Auto) 2.3 Baso % (Auto) 0.7 Lymph # (Auto) 1.06 [place] # (Auto) 0.7 H Eos # (Auto) 0.1 Baso # (Auto) 0.0 Abs Immat Gran (auto) 0.03 Absolute Neuts (auto) 2.5 Absolute Nucleated RBC 0.000 Nucleated RBC % 0.0 Sodium 135 L Potassium 3.8 Chloride 102 Carbon Dioxide 23 Anion Gap 10 BUN 6 L Creatinine 0.80 Estim Creat Clear Calc 81 Estimated GFR > 60 Glucose 93 Calcium 7.8 L Magnesium 1.8 Total Bilirubin 0.4 AST 31 ALT 21 Alkaline Phosphatase 128 H C-Reactive Protein 16.2 H Total Protein 6.0 L Albumin 2.8 L Ceruloplasmin 28 Procalcitonin 0.5
[2024-05-22] MEDS: ONDANSETRON INJ 4 MG/2 ML VIAL IV PUSH (19:37)
[2024-05-22] MEDS: DEXTROMETHORPHAN POLISTIREX 60 MG/10 ML SYRINGE PO (19:37)
[2024-05-22 21:00] VITALS: BP 125/81; PULSE 89; RESP 16; TEMP 37.3; O2SAT 95
[2024-05-23 05:37] VITALS: BP 114/74; PULSE 89; RESP 16; TEMP 36.9; O2SAT 95
[2024-05-23 06:30] LABS: Basophils Percent Auto 0.8 % (0.2-1.2); Eosinophils Absolute Auto 0.1 K/mm3 (0-0.3); Eosinophils Percent Auto 3.8 % (0-4.4); Hematocrit 30.5 % (37.0-47.0); Hemoglobin 10.3 g/dL (12.0-15.0); Immature Granulocyte Absolute 0.05 K/mm3 (0.00-0.031); Immature Granulocyte Percent A 1.4 % (0-0.5); Lymphocytes Absolute Auto 0.94 K/mm3 (0.9-3.2); Lymphocytes Percent Auto 25.7 % (18.3-44.2); Mean Corpuscular HGB Conc 33.8 g/dl (32-36); Mean Corpuscular Hemoglobin 34.2 pg (26-34); Mean Corpuscular Volume 101.3 fl (80-100); Mean Platelet Volume 9.7 fl (7.4-10.4); Monocytes Absolute Auto 0.6 K/mm3 (0.1-0.6); Monocytes Percent Auto 16.4 % (2.6-8.5); Neutrophils Absolute Auto 1.9 K/mm3 (1.3-6.7); Neutrophils Percent Auto 51.9 % (45.5-73.1); Platelet Count Result 204 k/mm3 (150-375); Red Blood Count 3.01 M/mm3 (4.2-5.4); Red Cell Distribution Width 13.2 % (11.5-14.5); White Blood Count 3.7 K/mm3 (4.5-10.0)
[2024-05-23 06:39] LABS: Iron 37 ug/dL (37-170)
[2024-05-23 06:48] LABS: Percent Iron Saturation 14 % (20-50); TOTAL IRON BINDING CAPACITY 257 ug/dL (261-462)
[2024-05-23 06:49] LABS: Anion Gap 8 mmol/L (4-12); Blood Urea Nitrogen 4 mg/dL (7-17); Calcium 8.6 mg/dL (8.4-10.2); Carbon Dioxide 30 mmol/L (22-30); Chloride 100 mmol/L (98-107); Estimated CRCL calculation 91 ml/min; Estimated Glomerular Filt Rate > 60; Glucose 93 mg/dL (65-110); Magnesium 2.3 mg/dL (1.6-2.3); Potassium 4.2 mmol/L (3.4-5.0); Sodium 138 mmol/L (137-145)
[2024-05-23 06:59] LABS: CRP 11.7 mg/dL (<1.0)
[2024-05-23] MEDS: ONDANSETRON INJ 4 MG/2 ML VIAL IV PUSH (07:04)
[2024-05-23] MEDS: ACETAMINOPHEN 325 MG TABLET 650 MG PO (07:07)
[2024-05-23] MEDS: MORPHINE SULFATE (*CRX) 4 MG/ML INJ IV PUSH (07:08)
[2024-05-23] MEDS: DEXTROMETHORPHAN POLISTIREX 60 MG/10 ML SYRINGE PO (07:08)
[2024-05-23 07:40] VITALS: PULSE 88; RESP 18
[2024-05-23] MEDS: IPRATROPIUM 0.5 MG/ALBUTEROL SULFATE 2.5 MG AMPUL.NEB 3 ML INHALATION (07:40)
[2024-05-23 07:45] LABS: Folic Acid 7.2 ng/mL (2.76->20)
[2024-05-23 07:50] VITALS: PULSE 90; RESP 18
[2024-05-23] MEDS: AZITHROMYCIN 250 MG TABLET 500 MG PO (08:37)
[2024-05-23] MEDS: cefTRIAXone 2 GM/NS 100 ML 2 GM/100 ML BAG IVPB (08:37)
[2024-05-23] MEDS: ENOXAPARIN 40 MG/0.4 ML SYRINGE SUB-Q (08:37)
--- NOTE | 2024-05-23 12:59 | P.DS_ITS ---
DS: Admitting Diagnosis Discharge Date May 23, 2024 Admitting Diagnosis Fevers chills nausea sweats flank pain DS: Discharge Diagnosis Discharge Diagnosis (1) Multilobar lung infiltrate: Code(s): R91.8 - Other nonspecific abnormal finding of lung field Status: Acute (2) Sepsis: Qualifiers: Sepsis acute organ dysfunction status: unspecified Sepsis type: sepsis due to unspecified organism Qualified Code(s): A41.9 - Sepsis, unspecified organism Code(s): A41.9 - Sepsis, unspecified organism Status: Acute (3) Pyelonephritis: Code(s): N12 - Tubulo-interstitial nephritis, not specified as acute or chronic Status: Acute (4) Asthma attack: Code(s): J45.901 - Unspecified asthma with (acute) exacerbation Status: Acute (5) Asthma: Code(s): J45.909 - Unspecified asthma, uncomplicated Status: Acute DS: Summary Hospital Course Hospital Course: 28-year-old female with PMH of asthma, IV drug abuse for years prior. She presents with fevers chills nausea sweats vomiting. Patient found to have abnormal urinalysis however urine culture without growth. Found to have bacterial pneumonia on CTA. Likely pyelonephritis on the left side as well. Patient ultimately treated for pyelonephritis and community-acquired pneumonia with ceftriaxone and azithromycin. She had evidence of sepsis without shock. Sepsis, symptomatology improved greatly. Quad viral screen negative, full respiratory pathogen panel pathogen pending She is stable for discharge on 05/23/2024 to home with another 5 tablets of Augmentin. She will also be prescribed an albuterol inhaler, she had shortness of breath and cough which improved greatly with a 1 times DuoNeb. Adverse effects, risk and benefits discussed with the patient to which she understood and agreed to the plan above as well as following with her PCP within 1-2 weeks. Time Spent with Patient Time attestation: Total time spent providing and/or coordinating discharge services: Exam Const: General: cooperative and no acute distress Resp: Effort & Inspection: normal respiratory effort Auscultation: clear to auscultation bilaterally Cardio: Rate: regular rate Rhythm: regular rhythm Heart sounds: S1 normal heart sound present and S2 normal heart sound present GI: GI Palp: No abdominal tenderness Auscultation: normal bowel sounds DS: Data Data Completed and Pending Labs on day of discharge: Labs from last 24 hours 05/23/24 05/22/24 05/21/24 05:47 22:10 13:02 WBC 3.7 L RBC 3.01 L Hgb 10.3 L Hct 30.5 L MCV 101.3 H MCH 34.2 H MCHC 33.8 RDW 13.2 Plt Count 204 MPV 9.7 Immature Gran % (Auto) 1.4 H Neut % (Auto) 51.9 Lymph % (Auto) 25.7 [place] % (Auto) 16.4 H Eos % (Auto) 3.8 Baso % (Auto) 0.8 Lymph # (Auto) 0.94 [place] # (Auto) 0.6 Eos # (Auto) 0.1 Baso # (Auto) 0.0 Abs Immat Gran (auto) 0.05 H Absolute Neuts (auto) 1.9 Absolute Nucleated RBC 0.000 Nucleated RBC % 0.0 Sodium 138 Potassium 4.2 Chloride 100 Carbon Dioxide 30 Anion Gap 8 BUN 4 L Creatinine 0.70 Estim Creat Clear Calc 91 Estimated GFR > 60 Glucose 93 Calcium 8.6 Magnesium 2.3 Iron 37 TIBC 257 L % Saturation 14 L Ferritin 116.00 C-Reactive Protein 11.7 H Ceruloplasmin 28 Vitamin B12 421.0 Folate 7.2 Nasal RSV Type A (PCR) Pending Nasal RSV Type B (PCR) Pending Chlamy pneumoniae PCR Pending Adenovirus DNA Pending Human Bocavirus (KELLIE) Pending Coronavirus Type OC43 Pending Coronavirus Type HKU1 Pending Coronavirus Type 229E Pending Coronavirus Type NL63 Pending Human Metapneumovir PCR Pending Influenza A (PCR) Pending Influenza A (H1) RNA Pending Influenza A (H3) PCR Pending M. pneumoniae DNA Pending Parainfluenza PCR Pending Parainfluenza 2 (PCR) Pending Parainfluenza 3 RNA (PCR) Pending Parainfluenza 4 (PCR) Pending Rhino/Enterovirus (KELLIE) Pending SARS-CoV-2 RNA (RT-PCR) Pending Influenza Type B (PCR) Pending [facility] [place] Test Comment Pending Preliminary micro results at discharge 05/20/24 17:39 Blood Culture - Preliminary Blood 05/20/24 17:39 Blood Culture - Preliminary Blood Discharge Plan Discharge Attending physician on discharge: Marielos Mills Discharging Clinician: Marielos Mills Patient Disposition: Home, Self-Care Activity: march shower Diet: as tolerated Patient Instructions: Antibiotic Form Stand Alone Forms: General Discharge Information Follow-up/Referrals: Jose Ying M.D. [Primary Care Provider] - Call for Appointment (Call within 1 day to set up 1-2 week follow-up appointment) Discharge Medications: New amoxicillin-pot clavulanate 875-125 mg tablet 1 tablet PO Q12H Qty: 5 0RF albuterol sulfate 90 mcg/actuation HFA aerosol inhaler 2 puff inhalation QID PRN (Reason: shortness of breath or wheezing) Qty: 8.5 0RF Date of admission: 05/20/24 20:58 Primary Care Provider: Jose Ying Admitting Provider: Elfego Diego V. Attending physician on admission: Elfego Diego V. Condition: Stable
[2024-05-23 14:00] VITALS: BP 112/79; PULSE 90; RESP 12; TEMP 36.7; O2SAT 100
[2024-05-25 22:13] LABS: Legionella pneumophila Ag Ur. NOT DETECTED
[2024-05-27 04:58] LABS: Actin Antibody (IgG). <20 U (<20)
[2024-05-27 19:13] LABS: Mycoplasma IgM Antibody Titer. 211 U/mL
[2024-05-29 08:54] LABS: Mitochondrial (M2) Ab (IgG). <20.0 U
[2024-05-30 14:53] LABS: Adenovirus DNA Not Detected (Not Detected); Chlamydophila pneumoniae Not Detected (Not Detected); Coronavirus 229E Not Detected (Not Detected); Coronavirus HKU1 Not Detected (Not Detected); Coronavirus NL63 Not Detected (Not Detected); Coronavirus OC43 Not Detected (Not Detected); Human Metapneumovirus Not Detected (Not Detected); Human Parainfluenza Virus 1 Not Detected (Not Detected); Human Parainfluenza Virus 2 Not Detected (Not Detected); Human Parainfluenza Virus 3 Not Detected (Not Detected); Human Parainfluenza Virus 4 Not Detected (Not Detected); Human RSV B Not Detected (Not Detected); Influenza A Not Detected (Not Detected); Influenza B Not Detected (Not Detected); Mycoplasma pneumoniae Not Detected (Not Detected); Rhinovirus/Enterovirus Not Detected (Not Detected)
== END 2024-05-23 14:59 | disposition home or self-care (01) | DRG 463 ==
LOC: ANHED 20:52 → ANH3MEDSUR 21:52
PROVIDERS: Physician Assistant; Admitting Provider Internal Medicine; Emergency Provider Physician Assistant; PCP Family Medicine; Visit Provider General Practice
DX: N12 Tubulo-interstitial nephritis, not specified as acute or chronic (principal); J45.901 Unspecified asthma with (acute) exacerbation; J18.9 Pneumonia, unspecified organism
CPT/HCPCS: 36415; 71275; 74177; 80048; 80053; 80074; 80307; 81001; 81025; 82104; 82390; 82607; 82728; 82746; 83520; 83540; 83550; 83605; 83690; 83735; 83880; 84145; 85025; 85380; 85610; 85730; 86140; 86364; 86703; 86738; 87040; 87086; 87449; 87633; 87637; 87899; 93005; 93306; 93971; 94640; 96361; 96365; 99285; A9270; G0432; J0696; J1650; J2185; J2270; J2405; J7030; Q9967